=== PATIENT | male | born 1935 | race African-American/Black ===

== ENCOUNTER 2016-11-14 21:33 | Emergency (ER) | payer OTHER ==
[~2016-11-14] VITALS: Ht 182.9 cm; Wt 81.6 kg
[2016-11-14 22:29] VITALS: BP 132/82
[2016-11-14] MEDS ORDERED: KEFLEX500 MG ORAL (22:36)
[2016-11-14 23:25] LABS: APPEARANCE,URINE CLEAR; KETONES,URINE NEGATIVE (NEGATIVE); LEUKOCYTE ESTERASE ,URINE NEGATIVE (NEGATIVE); MEAN CORPUSCULAR HEMOGLOBIN 31.6 PG (27.0-31.0); MEAN CORPUSCULAR VOLUME 93 FL (80-99); MEAN PLATELET VOLUME 9.4 FL (6.5-10.1); NITRITE,URINE NEGATIVE (NEGATIVE); PH,URINE 5 (4.5-8.0); PLATELET COUNT 157 K/UL (150-450); PROTEIN,URINE NEGATIVE (NEGATIVE); RED BLOOD COUNT 4.81 M/UL (4.70-6.10); RED CELL DISTRIBUTION WIDTH 12.1 % (11.6-14.8); UROBILINOGEN,URINE NORMAL MG/DL (0.0-1.0); WHITE BLOOD COUNT 3.4 K/UL (4.8-10.8)
[2016-11-14 23:33] LABS: RBC,URINE 60-80 /HPF (0 - 0); SQUAMOUS EPITHELIAL CELL,UR FEW /LPF (NONE/OCC); WBC,URINE 0 /HPF (0 - 0)
[2016-11-14 23:43] LABS: ALANINE AMINOTRANSFERASE 22 U/L (3-41); ALBUMIN/GLOBULIN RATIO 1.1 (1.0-2.7); ALCOHOL < 10 mg/dL; ANION GAP 15 (5-15); ASPARTATE AMINO TRANSFERASE 25 U/L (5-40); CALCIUM 9.4 mg/dL (8.6-10.2); CARBON DIOXIDE 27 mEQ/L (20-30); CHLORIDE 99 mEQ/L (98-107); CREATININE 1.1 mg/dL (0.7-1.2); HEMOLYSIS 14; POTASSIUM 3.9 mEQ/L (3.4-4.9); SODIUM 141 mEQ/L (135-145)
[2016-11-15 00:29] VITALS: BP 136/85
[2016-11-15 02:29] VITALS: BP 163/85
--- NOTE | 2016-11-15 04:27 | Emergency Room Report ---
History of Present Illness General Chief Complaint: Behavioral Complaint Source: Patient, EMS Present Illness HPI Patient is an 81-year-old male presented after increased agitation. Patient had prior history dementia. Patient stays at a [facility]. Patient was noted to have previously been taking Namenda as well as Seroquel. Patient gradual onset of symptoms. Patient was sent for adjustment of medications. Allergies: Coded Allergies: No Known Allergies (Unverified , 11/14/16) Patient History Past Medical History: see triage record, dementia Reviewed Nursing Documentation: PMH: Agreed, PSxH: Agreed Nursing Documentation-PMH Past Medical History: No History, Except For Review of Systems All Other Systems: limited - by mental status Physical Exam Vital Signs Date Time Temp Pulse Resp B/P Pulse Ox O2 Delivery O2 Flow Rate FiO2 11/14/16 21:42 99.0 84 14 136/82 99 Room Air Sp02 EP Interpretation: reviewed, normal General Appearance: normal inspection, well appearing, no apparent distress, alert, GCS 15 Head: atraumatic ENT: normal ENT inspection, hearing grossly normal, normal voice Neck: normal inspection, full range of motion, supple, no bony tend Respiratory: normal inspection, lungs clear, normal breath sounds, no respiratory distress, no retraction, no wheezing Cardiovascular #1: regular rate, rhythm, no edema Gastrointestinal: normal inspection, normal bowel sounds, non tender, soft, no guarding, no hernia Genitourinary: no CVA tenderness Musculoskeletal: normal inspection, back normal, normal range of motion Neurologic: normal inspection, alert, responsive, speech normal Psychiatric: normal inspection, judgement/insight normal, mood/affect normal, other - calm cooperative Skin: normal inspection, normal color, no rash Medical Decision Making Diagnostic Impression: Primary Impression: Dementia ER Course Patient presented for agitation. Differential diagnoses include substance abuse , psychosis, bipolar disorder, depression, malingering, sundowning, dementia. Because of complexity of patient's case laboratory testing and imaging studies were ordered. Patient appeared to have a chronic dementia. Patient does not appear to be agitated at this time. Patient was given Seroquel by mouth. The patient was discussed with his [id number] and will be sent back. The patient shows no evidence of danger to others at this time. I attempted to contact the patient' s primary care physician was unavailable. Labs Test 11/14/16 23:00 White Blood Count 3.4 K/UL (4.8-10.8) Red Blood Count 4.81 M/UL (4.70-6.10) Hemoglobin 15.2 G/DL (14.2-18.0) Hematocrit 44.7 % (42.0-52.0) Mean Corpuscular Volume 93 FL (80-99) Mean Corpuscular Hemoglobin 31.6 PG (27.0-31.0) Mean Corpuscular Hemoglobin Concent 34.0 G/DL (32.0-36.0) Red Cell Distribution Width 12.1 % (11.6-14.8) Platelet Count 157 K/UL (150-450) Mean Platelet Volume 9.4 FL (6.5-10.1) Neutrophils (%) (Auto) % (45.0-75.0) Lymphocytes (%) (Auto) % (20.0-45.0) Monocytes (%) (Auto) % (1.0-10.0) Eosinophils (%) (Auto) % (0.0-3.0) Basophils (%) (Auto) % (0.0-2.0) Urine Color Pale yellow Urine Appearance Clear Urine pH 5 (4.5-8.0) Urine Specific [place] 1.025 (1.005-1.035) Urine Protein Negative (NEGATIVE) Urine Glucose (UA) Negative (NEGATIVE) Urine Ketones Negative (NEGATIVE) Urine Occult Blood 4+ (NEGATIVE) Urine Nitrite Negative (NEGATIVE) Urine Bilirubin Negative (NEGATIVE) Urine Urobilinogen Normal MG/DL (0.0-1.0) Urine Leukocyte Esterase Negative (NEGATIVE) Urine RBC 60-80 /HPF (0 - 0) Urine WBC 0 /HPF (0 - 0) Urine Squamous Epithelial Cells Few /LPF (NONE/OCC) Urine Bacteria None /HPF (NONE) Sodium Level 141 mEQ/L (135-145) Potassium Level 3.9 mEQ/L (3.4-4.9) Chloride Level 99 mEQ/L (98-107) Carbon Dioxide Level 27 mEQ/L (20-30) Anion Gap 15 (5-15) Blood Urea Nitrogen 14 mg/dL (7-23) Creatinine 1.1 mg/dL (0.7-1.2) Estimat Glomerular Filtration Rate mL/min (>60) Glucose Level 110 mg/dL (74-106) Calcium Level 9.4 mg/dL (8.6-10.2) Total Bilirubin 0.3 mg/dL (0.0-1.2) Aspartate Amino Transf (AST/SGOT) 25 U/L (5-40) Alanine Aminotransferase (ALT/SGPT) 22 U/L (3-41) Alkaline Phosphatase 66 U/L (40-129) Total Protein 7.0 g/dL (6.6-8.7) Albumin 3.7 g/dL (3.5-5.2) Globulin 3.3 g/dL Albumin/Globulin Ratio 1.1 (1.0-2.7) Thyroid Stimulating Hormone (TSH) 3.190 uIU/mL (0.300-4.500) Urine Opiates Screen Negative (NEGATIVE) Urine Barbiturates Screen Negative (NEGATIVE) Phencyclidine (PCP) Screen Negative (NEGATIVE) Urine Amphetamines Screen Negative (NEGATIVE) Urine Benzodiazepines Screen Negative (NEGATIVE) Urine Cocaine Screen Negative (NEGATIVE) Urine Marijuana (THC) Screen Negative (NEGATIVE) Serum Alcohol < 10 mg/dL Last Vital Signs Date Time Temp Pulse Resp B/P Pulse Ox O2 Delivery O2 Flow Rate FiO2 11/15/16 00:29 99.0 83 16 136/85 98 Room Air Status: improved Disposition: HOME, SELF-CARE Condition: Stable Scripts Cephalexin* (KEFLEX*) 500 Mg Capsule 500 MG ORAL Q6H, #28 CAP 0 Refills Prov: Dylan Alaniz 11/14/16 Referrals: [facility],REFERRING (PCP) Patient Instructions: Contusion Dylan Alaniz Nov 15, 2016 04:27
[2016-11-15 04:29] VITALS: BP 158/84
[2016-11-15 06:29] VITALS: BP 159/81
[2016-11-15 11:08] VITALS: BP 130/80
== END 2016-11-15 11:11 | disposition home or self-care (01) ==
LOC: EMR 22:10
DX: F03.90 Unspecified dementia, unspecified severity, without behavioral disturbance, psychotic disturbance, mood disturbance, and anxiety (principal); Z79.899 Other long term (current) drug therapy
CPT/HCPCS: 36415; 80053; 80300; 81001; 84443; 85025; 99283; G0480; 80329

== ENCOUNTER 2017-02-01 08:36 | Inpatient (IN) | payer OTHER ==
[~2017-02-01] VITALS: Ht 172.7 cm; Wt 63.5 kg
[2017-02-01] VITALS (15 sets, daily range): BP systolic 90–157; BP diastolic 45–82
[~2017-02-01 08:36] MED LIST: KEFLEX500 MG ORAL
[2017-02-01] MEDS ORDERED: cefTRIAXone 1 GM in NS 55 ML IVPB ONE (08:45)
--- NOTE | 2017-02-01 08:51 | Emergency Room Report ---
History of Present Illness General Chief Complaint: Altered Level of Consciousness Source: Medical Record, EMS Present Illness HPI This patient presents from an assisted living facility. He presents for altered mental status. He is brought in by EMS. He has a history of dementia, hypertension, prostate cancer, hyperthyroidism and P. diabetes. EMS report that they were called because of altered mental status. The last time the patient was seen in his normal state of health was yesterday evening. EMS report that fingerstick blood sugar was "high" on their blood sugar machine. The patient has not been previously diagnosed with diabetes. The patient is nonambulatory at baseline and has severe dementia and is unable to care for himself. Allergies: Coded Allergies: No Known Allergies (Unverified , 11/14/16) Patient History Past Medical History: see triage record, HTN, dementia, other - Prostate ca, Hyperthyroid Past Surgical History: unable to obtain Pertinent Family History: unable to obtain Social History: Denies: alcohol use, drug use, smoking Reviewed Nursing Documentation: PMH: Agreed, PSxH: Agreed Nursing Documentation-PMH Past Medical History: No History, Except For Hx Hypertension: Yes Hx Cancer: Yes - prostate Hx Neurological Problems: Yes - dementia Review of Systems All Other Systems: limited Physical Exam Vital Signs Date Time Temp Pulse Resp B/P Pulse Ox O2 Delivery O2 Flow Rate FiO2 02/01/17 08:29 115 37 111/75 94 Nasal Cannula 3.0 Sp02 EP Interpretation: reviewed, normal General Appearance: no apparent distress, Stupor Head: normocephalic, atraumatic Eyes: bilateral eye abnormal pupil - R. pupil 1mm, L. pupil 2mm ENT: normal ENT inspection, normal pharynx, no angioedema Neck: full range of motion, supple/symm/no masses Respiratory: chest non-tender, lungs clear, normal breath sounds, no respiratory distress, no retraction, no accessory muscle use, other - Tachypnea Cardiovascular #1: no edema, tachycardia Gastrointestinal: normal bowel sounds, soft, non-distended, no guarding, no rebound Rectal: deferred Musculoskeletal: normal inspection, normal range of motion Neurologic: sensory intact, other - Withdrawls from pain, unable to fully assess, non-focal Skin: normal color, warm/dry, well hydrated Medical Decision Making Diagnostic Impression: Primary Impression: Uncontrolled type 2 DM with hyperosmolar nonketotic hyperglycemia Additional Impressions: Renal failure Lactic acidosis UTI (urinary tract infection) High anion gap metabolic acidosis Hypernatremia Seizure Altered level of consciousness ER Course This patient presented with altered mental status and hyperglycemia. The patient did have a seizure here in the emergency department that was short and resolved spontaneously. The patient was maintaining stable vital signs. I did give the patient aggressive IV fluids to begin. Highest on my differential diagnosis was DKA and infection when I initially assessed this patient. Therefore, started aggressive IV fluids and broad-spectrum antibiotics. I did obtain a CT of the head given altered mental status and asymmetric pupils which showed no acute findings. Laboratory workup showed a blood sugar over 800. Patient is also in renal failure and lactic acidosis. He does have an anion gap but minimal ketones. Possibly this is from the lactic acidosis and dehydration. This appears to be more consistent with hyperosmolar hyperglycemia syndrome. The patient was also found to have urinary tract infection. This patient is admitted to the ICU. This patient is critically ill. This patient required complex medical decision- making, aggressive intervention, extensive laboratory workup and monitoring. Critical care time: 40 minutes. Labs Test 02/01/17 09:10 02/01/17 10:20 02/01/17 10:40 White Blood Count 10.1 K/UL (4.8-10.8) Red Blood Count 5.26 M/UL (4.70-6.10) Hemoglobin 15.2 G/DL (14.2-18.0) Hematocrit 51.2 % (42.0-52.0) Mean Corpuscular Volume 97 FL (80-99) Mean Corpuscular Hemoglobin 28.8 PG (27.0-31.0) Mean Corpuscular Hemoglobin Concent 29.7 G/DL (32.0-36.0) Red Cell Distribution Width 14.0 % (11.6-14.8) Platelet Count 331 K/UL (150-450) Mean Platelet Volume 7.9 FL (6.5-10.1) Neutrophils (%) (Auto) 84.1 % (45.0-75.0) Lymphocytes (%) (Auto) 11.2 % (20.0-45.0) Monocytes (%) (Auto) 4.5 % (1.0-10.0) Eosinophils (%) (Auto) 0.1 % (0.0-3.0) Basophils (%) (Auto) 0.2 % (0.0-2.0) Sodium Level 159 mEQ/L (135-145) Potassium Level 3.8 mEQ/L (3.4-4.9) Chloride Level 114 mEQ/L (98-107) Carbon Dioxide Level 24 mEQ/L (20-30) Anion Gap 21 (5-15) Blood Urea Nitrogen 47 mg/dL (7-23) Creatinine 2.8 mg/dL (0.7-1.2) Estimat Glomerular Filtration Rate mL/min (>60) Glucose Level 881 mg/dL (74-106) Lactic Acid Level 4.10 mmol/L (0.66-2.22) 1.70 mmol/L (0.66-2.22) Calcium Level 9.1 mg/dL (8.6-10.2) Magnesium Level 2.7 mg/dL (1.7-2.5) Total Bilirubin 0.3 mg/dL (0.0-1.2) Aspartate Amino Transf (AST/SGOT) 41 U/L (5-40) Alanine Aminotransferase (ALT/SGPT) 33 U/L (3-41) Alkaline Phosphatase 101 U/L (40-129) Total Creatine Kinase 869 U/L (38-174) Troponin I < 0.30 ng/mL (<=0.30) Total Protein 6.7 g/dL (6.6-8.7) Albumin 2.7 g/dL (3.5-5.2) Globulin 4.0 g/dL Albumin/Globulin Ratio 0.6 (1.0-2.7) Thyroid Stimulating Hormone (TSH) 1.060 uIU/mL (0.300-4.500) Free Thyroxine 0.90 ng/dL (0.86-1.85) Serum Alcohol < 10 mg/dL Acetone Level Positive-small (NEGATIVE) Arterial Blood pH 7.360 (7.350-7.450) Arterial Blood Partial Pressure CO2 35.0 mmHg (35.0-45.0) Arterial Blood Partial Pressure O2 82.1 mmHg (75.0-100.0) Arterial Blood HCO3 19.4 mmol/L (22.0-26.0) Arterial Blood Oxygen Saturation 94.5 % (92.0-98.0) Arterial Blood Base Excess -5.2 Adam Test Positive EKG Diagnostic Results Rate: tachycardiac Rhythm: other ST Segments: other Other Impression Sinus tachycardia with first degree AV block. Nonspecific ST segment findings. Rhythm Strip Diag. Results EP Interpretation: yes Rate: 100's Rhythm: no PVC's, no ectopy Other Impression S.tachycardia Chest X-Ray Diagnostic Results EP Interpretation: Yes Findings: no consolidation, no effusion, no pneumothorax, no acute cardiopulmonary disease Number of Views: 1 CT/MRI/US Diagnostic Results CT/MRI/US Diagnostic Results : Imaging Test Ordered: CT head Impression No intracranial bleed. No acute intracranial process. Impression: No acute findings. Last Vital Signs Date Time Temp Pulse Resp B/P Pulse Ox O2 Delivery O2 Flow Rate FiO2 02/01/17 08:29 115 37 111/75 94 Nasal Cannula 3.0 Disposition: ADMITTED INPATIENT Condition: Critical HOSSEIN BLACK D.O. Feb 01, 2017 08:51
[2017-02-01] MEDS ORDERED: LORazepam Inj 2mg/ml 1ml ONE (09:24)
[2017-02-01] MEDS ORDERED: LORazepam Inj 2mg/ml 1ml IV ONE (09:30)
[2017-02-01] MEDS ORDERED: levETIRAcetam 500 MG in D5W 110 ML IVPB ONE (09:30)
[2017-02-01 09:57] LABS: BASOPHILS % (AUTO) 0.2 % (0.0-2.0); EOSINOPHILS % (AUTO) 0.1 % (0.0-3.0); LYMPHOCYTES % (AUTO) 11.2 % (20.0-45.0); MEAN CORPUSCULAR HEMOGLOBIN 28.8 PG (27.0-31.0); MEAN CORPUSCULAR HGB CONC 29.7 G/DL (32.0-36.0); MEAN CORPUSCULAR VOLUME 97 FL (80-99); MEAN PLATELET VOLUME 7.9 FL (6.5-10.1); MONOCYTES % (AUTO) 4.5 % (1.0-10.0); NEUTROPHILS % (AUTO) 84.1 % (45.0-75.0); PLATELET COUNT 331 K/UL (150-450); RED BLOOD COUNT 5.26 M/UL (4.70-6.10); WHITE BLOOD COUNT 10.1 K/UL (4.8-10.8)
[2017-02-01 10:05] LABS: TROPONIN I < 0.30 ng/mL (<=0.30)
[2017-02-01 10:08] LABS: ALANINE AMINOTRANSFERASE 33 U/L (3-41); ALBUMIN/GLOBULIN RATIO 0.6 (1.0-2.7); ALCOHOL < 10 mg/dL; ANION GAP 21 (5-15); ASPARTATE AMINO TRANSFERASE 41 U/L (5-40); CALCIUM 9.1 mg/dL (8.6-10.2); CARBON DIOXIDE 24 mEQ/L (20-30); CHLORIDE 114 mEQ/L (98-107); CREATININE 2.8 mg/dL (0.7-1.2); HEMOLYSIS 32; MAGNESIUM 2.7 mg/dL (1.7-2.5); POTASSIUM 3.8 mEQ/L (3.4-4.9); SODIUM 159 mEQ/L (135-145); TOTAL PROTEIN 6.7 g/dL (6.6-8.7)
--- NOTE | 2017-02-01 10:11 | Diagnostic Imaging Report ---
Indication: Shortness of breath Technique: One view of the chest Comparison: none Findings: Lungs and pleural spaces are clear. Aorta is elongated tortuous and calcified. Impression: No acute process
[2017-02-01 10:13] LABS: REFLEX LACTIC ACID YES OR NO YES
[2017-02-01] MEDS ORDERED: Nitroglycerin Subl 0.4mg tab (Bottle Of 25) SL PRN (10:45)
[2017-02-01] MEDS ORDERED: Miralax 17gm pkt ORAL PRN (10:45)
[2017-02-01] MEDS ORDERED: DuoNeb 0.5-3(2.5)mg/3ml neb HHN PRN (10:45)
[2017-02-01] MEDS ORDERED: LORazepam Inj 2mg/ml 1ml IV PRN (10:45)
[2017-02-01 10:51] LABS: ABG BASE EXCESS -5.2
[2017-02-01 10:52] LABS: ABG ALLEN TEST POSITIVE
[2017-02-01] MEDS ORDERED: levETIRAcetam 500mg vial IV ONE (10:58)
--- NOTE | 2017-02-01 11:02 | Diagnostic Imaging Report ---
Indication: Altered mental status Technique: spiral acquisitions obtained through the brain. Angled axial and coronal 5 x 5 mm slices were reconstructed. No IV contrast utilized. Radiation dose was minimized using automated exposure control Total dose length product 1414 mGycm. CTDIvol(s) 70 mGy Comparison: none FINDINGS: No acute hemorrhage or edema. No mass effect or midline shift. There is age-related enlargement of the ventricles and extra axial CSF spaces. There is periventricular deep white matter ischemic change. Normal king-white differentiation. Visualized orbits are unremarkable. Visualized sinuses are unremarkable. Intact calvarium. IMPRESSION: Chronic and age-related changes. Negative for acute intracranial bleed or mass effect The CT scanner at [facility] is accredited by the [employer] and the scans are performed using protocols designed to limit radiation exposure to as low as reasonably achievable to attain images of sufficient resolution adequate for diagnostic evaluation
[2017-02-01] MEDS ORDERED: PRADAXA150 MG ORAL (11:09)
[2017-02-01] MEDS ORDERED: COENZYME Q-10200 MG PO (11:09)
[2017-02-01] MEDS ORDERED: KLONOPIN1 MG ORAL (11:09)
[2017-02-01] MEDS ORDERED: MULTIVITAMINS1 EAC2 ORAL (11:09)
[2017-02-01] MEDS ORDERED: LOVAZA1 GM ORAL (11:09)
[2017-02-01] MEDS ORDERED: ACETAMINOPHEN325 M1 ORAL (11:09)
[2017-02-01] MEDS ORDERED: ASCORBIC ACID500 MG ORAL (11:09)
[2017-02-01] MEDS ORDERED: HALOPERIDOL1 MG ORAL (11:09)
[2017-02-01] MEDS ORDERED: DOCUSATE SODIU100 MG ORAL (11:09)
[2017-02-01] MEDS ORDERED: SERTRALINE HCL25 MG ORAL (11:09)
[2017-02-01] MEDS ORDERED: MELATONIN 3 MG1 EACH ORAL (11:09)
[2017-02-01] MEDS ORDERED: BISACODYL5 MG ORAL (11:09)
[2017-02-01] MEDS ORDERED: VITAMIN D1000 UNI1 ORAL (11:09)
[2017-02-01] MEDS ORDERED: TRAZODONE HCL150 MG ORAL (11:09)
[2017-02-01 12:21] LABS: APPEARANCE,URINE SLIGHTLY CLOUDY; KETONES,URINE 2+ (NEGATIVE); LEUKOCYTE ESTERASE ,URINE NEGATIVE (NEGATIVE); NITRITE,URINE NEGATIVE (NEGATIVE); PH,URINE 5 (4.5-8.0); PROTEIN,URINE 3+ (NEGATIVE); UROBILINOGEN,URINE NORMAL MG/DL (0.0-1.0)
[2017-02-01 12:32] LABS: BACTERIA,URINE FEW /HPF; RBC,URINE TNTC /HPF (0 - 0); SQUAMOUS EPITHELIAL CELL,UR OCCASIONAL /LPF (NONE/OCC)
[2017-02-01] MEDS: Morphine Sulfate 4mg/ml Inj IVP PRN (15:10)
[2017-02-01 16:22] LABS: ANION GAP 21 (5-15); CARBON DIOXIDE 19 mEQ/L (20-30); CHLORIDE 118 mEQ/L (98-107); CREATININE 2.4 mg/dL (0.7-1.2); HEMOLYSIS 10; POTASSIUM 3.5 mEQ/L (3.4-4.9); SODIUM 158 mEQ/L (135-145)
[2017-02-01] MEDS ORDERED: Tubing IV Secondary IV ONE (16:45)
[2017-02-01] MEDS ORDERED: Insulin Rate Change 1 Each MISC PRN (17:00)
--- NOTE | 2017-02-01 18:02 | History and Physical ---
History of Present Illness General Reason for Hospitalization: Altered Level of Consciousness Present Illness Allergies: Coded Allergies: No Known Allergies (Unverified , 11/14/16) Medication History Scheduled Ascorbic Acid* (Ascorbic Acid*), 500 MG ORAL DAILY, (Reported) Bisacodyl* (Dulcolax*), 5 MG ORAL DAILY, (Reported) Cephalexin* (Keflex*), 500 MG ORAL Q6H Cholecalciferol (Vitamin D3)* (Vitamin D*), 1,000 UNIT ORAL DAILY, (Reported) Clonazepam* (Klonopin*), 1 MG ORAL QHS, (Reported) Dabigatran Etexilate Mesylate* (Pradaxa*), 150 MG ORAL EVERY 12 HOURS, (Reported ) Docusate Sodium* (Docusate Sodium*), 100 MG ORAL TWICE A DAY, (Reported) Haloperidol* (Haldol*), 3 MG ORAL BID, (Reported) Multivitamins* (Multivitamins*), 1 TAB ORAL DAILY, (Reported) [place]-3 Acid Ethyl Esters (Lovaza), 1 GM ORAL DAILY, (Reported) Sertraline Hcl* (Sertraline Hcl*), 50 MG ORAL DAILY, (Reported) Trazodone* (Trazodone*), 50 MG ORAL BEDTIME, (Reported) Ubidecarenone (Coenzyme Q-10), 100 MG PO DAILY, (Reported) Scheduled PRN Acetaminophen* (Acetaminophen 325MG Tablet*), 650 MG ORAL Q6H PRN for Pain Scale (6-10), (Reported) Melatonin (Melatonin 3 Mg Tablet), 1 TAB ORAL BEDTIME PRN for Insomnia, ( Reported) Patient History Healthcare decision maker Resuscitation status Full Code Advanced Directive on File Physical Exam Last 24 Hour Vital Signs Date Time Temp Pulse Resp B/P Pulse Ox O2 Delivery O2 Flow Rate FiO2 02/01/17 16:00 117 02/01/17 16:00 98.2 113 33 150/82 98 Nasal Cannula 3.0 02/01/17 15:00 107 34 157/63 99 Nasal Cannula 3.0 02/01/17 15:00 106 32 157/63 100 Nasal Cannula 3.0 02/01/17 14:00 86 30 139/63 100 Nasal Cannula 3.0 02/01/17 13:00 88 02/01/17 13:00 88 31 128/70 100 Nasal Cannula 3.0 02/01/17 12:30 3.0 02/01/17 12:29 98.1 91 28 116/45 98 Nasal Cannula 3.0 02/01/17 11:42 91 27 137/66 100 Nasal Cannula 3.0 02/01/17 11:41 91 27 137/66 100 Nasal Cannula 3.0 02/01/17 10:30 90 31 113/62 99 Nasal Cannula 3.0 02/01/17 08:59 101.8 101 37 115/75 100 Nasal Cannula 3.0 02/01/17 08:29 115 37 111/75 94 Nasal Cannula 3.0 Laboratory Tests Test 02/01/17 09:10 02/01/17 10:20 02/01/17 10:40 02/01/17 12:00 White Blood Count 10.1 K/UL (4.8-10.8) Red Blood Count 5.26 M/UL (4.70-6.10) Hemoglobin 15.2 G/DL (14.2-18.0) Hematocrit 51.2 % (42.0-52.0) Mean Corpuscular Volume 97 FL (80-99) Mean Corpuscular Hemoglobin 28.8 PG (27.0-31.0) Mean Corpuscular Hemoglobin Concent 29.7 G/DL (32.0-36.0) L Red Cell Distribution Width 14.0 % (11.6-14.8) Platelet Count 331 K/UL (150-450) Mean Platelet Volume 7.9 FL (6.5-10.1) Neutrophils (%) (Auto) 84.1 % (45.0-75.0) H Lymphocytes (%) (Auto) 11.2 % (20.0-45.0) L Monocytes (%) (Auto) 4.5 % (1.0-10.0) Eosinophils (%) (Auto) 0.1 % (0.0-3.0) Basophils (%) (Auto) 0.2 % (0.0-2.0) Sodium Level 159 mEQ/L (135-145) H Potassium Level 3.8 mEQ/L (3.4-4.9) Chloride Level 114 mEQ/L (98-107) H Carbon Dioxide Level 24 mEQ/L (20-30) Anion Gap 21 (5-15) H Blood Urea Nitrogen 47 mg/dL (7-23) H Creatinine 2.8 mg/dL (0.7-1.2) H Estimat Glomerular Filtration Rate mL/min (>60) Glucose Level 881 mg/dL (74-106) *H Lactic Acid Level 4.10 mmol/L (0.66-2.22) H 1.70 mmol/L (0.66-2.22) Calcium Level 9.1 mg/dL (8.6-10.2) Magnesium Level 2.7 mg/dL (1.7-2.5) H Total Bilirubin 0.3 mg/dL (0.0-1.2) Aspartate Amino Transf (AST/SGOT) 41 U/L (5-40) H Alanine Aminotransferase (ALT/SGPT) 33 U/L (3-41) Alkaline Phosphatase 101 U/L (40-129) Total Creatine Kinase 869 U/L (38-174) H Troponin I < 0.30 ng/mL (<=0.30) Total Protein 6.7 g/dL (6.6-8.7) Albumin 2.7 g/dL (3.5-5.2) L Globulin 4.0 g/dL Albumin/Globulin Ratio 0.6 (1.0-2.7) L Thyroid Stimulating Hormone (TSH) 1.060 uIU/mL (0.300-4.500) Free Thyroxine 0.90 ng/dL (0.86-1.85) Serum Alcohol < 10 mg/dL Acetone Level Positive-small (NEGATIVE) Arterial Blood pH 7.360 (7.350-7.450) Arterial Blood Partial Pressure CO2 35.0 mmHg (35.0-45.0) Arterial Blood Partial Pressure O2 82.1 mmHg (75.0-100.0) Arterial Blood HCO3 19.4 mmol/L (22.0-26.0) L Arterial Blood Oxygen Saturation 94.5 % (92.0-98.0) Arterial Blood Base Excess -5.2 Adam Test Positive Urine Color Brown Urine Appearance Slightly cloudy Urine pH 5 (4.5-8.0) Urine Specific [place] 1.015 (1.005-1.035) Urine Protein 3+ (NEGATIVE) H Urine Glucose (UA) 4+ (NEGATIVE) H Urine Ketones 2+ (NEGATIVE) H Urine Occult Blood 5+ (NEGATIVE) H Urine Nitrite Negative (NEGATIVE) Urine Bilirubin Negative (NEGATIVE) Urine Urobilinogen Normal MG/DL (0.0-1.0) Urine Leukocyte Esterase Negative (NEGATIVE) Urine RBC Tntc /HPF (0 - 0) H Urine WBC 2-4 /HPF (0 - 0) Urine Squamous Epithelial Cells Occasional /LPF Urine Bacteria Few /HPF (NONE) Test 02/01/17 13:45 02/01/17 15:20 Glucose Level 823 mg/dL (74-106) *H > 745 mg/dL (74-106) *H Sodium Level 158 mEQ/L (135-145) H Potassium Level 3.5 mEQ/L (3.4-4.9) Chloride Level 118 mEQ/L (98-107) H Carbon Dioxide Level 19 mEQ/L (20-30) L Anion Gap 21 (5-15) H Blood Urea Nitrogen 50 mg/dL (7-23) H Creatinine 2.4 mg/dL (0.7-1.2) H Estimat Glomerular Filtration Rate mL/min (>60) Calcium Level 8.0 mg/dL (8.6-10.2) L Height (Feet): 5 Height (Inches): 8.00 Weight (Pounds): 125 Medications Current Medications Medications (Trade) Dose Ordered Sig/Feliz Route PRN Reason Start Time Stop Time Status Last Admin Dose Admin Acetaminophen (Tylenol) 650 mg Q4H PRN ORAL T>100.5 02/01/17 10:45 03/03/17 10:44 Albuterol/ Ipratropium (DuoNeb 0.5-3(2.5)mg/3ml) 3 ml Q4H PRN HHN Shortness of Breath 02/01/17 10:45 02/06/17 10:44 Dextrose (Dextrose 50%) STAT PRN IV Hypoglycemia 02/01/17 10:45 03/03/17 10:44 Heparin Sodium (Porcine) (Heparin 5000 units/ml) 5,000 units EVERY 12 HOURS SUBQ 02/01/17 21:00 03/03/17 20:59 Insulin Human Regular (NovoLIN R) 5 units PRN PRN IV BS 200-299 02/01/17 13:31 03/03/17 13:30 Insulin Human Regular (NovoLIN R) 10 units PRN PRN IV BS=>300 02/01/17 13:31 03/03/17 13:30 02/01/17 17:33 Insulin Human Regular/Sodium Chloride (NovoLIN R/ Sodium Chloride) 101 ml @ 0 mls/hr Q24H IV 02/01/17 17:00 03/03/17 16:59 02/01/17 17:34 Lorazepam (Ativan 2mg/ml 1ml) 2 mg Q2H PRN IV agitation 02/01/17 10:45 02/08/17 10:44 Miscellaneous Medication (Insulin Rate Change) 1 ea PRN PRN MISC ALL IVs IN NS 02/01/17 10:45 03/03/17 10:44 Morphine Sulfate (Morphine Sulfate) 4 mg Q4H PRN IVP Severe Pain (Pain Scale 7-10) 02/01/17 10:45 02/08/17 10:44 02/01/17 15:10 Nitroglycerin (Ntg) 0.4 mg Q5M PRN SL Prn Chest Pain 02/01/17 10:45 03/03/17 10:44 Ondansetron HCl (Zofran) 4 mg Q6H PRN IVP Nausea & Vomiting 02/01/17 10:45 03/03/17 10:44 Pantoprazole 40 mg 40 mg DAILY IVP 02/02/17 09:00 03/04/17 08:59 Polyethylene Glycol (Miralax) 17 gm DAILYPRN PRN ORAL Constipation 02/01/17 10:45 03/03/17 10:44 Sodium Chloride (Sodium Chloride 1000ml bag) 1,000 ml @ 150 mls/hr Q6H40M IV 02/01/17 13:30 03/03/17 13:29 02/01/17 14:44 FEDE ANSARI Feb 01, 2017 18:02
[2017-02-01] MEDS: Insulin Rate Change 1 Each MISC PRN ×5 (18:08→22:22)
[2017-02-01] MEDS ORDERED: Cefepime HCl 1 GM in NS 55 ML IVPB ONE (19:00)
[2017-02-01] MEDS: Heparin 5000 units/ml inj SUBQ SCH (21:00)
[2017-02-02] VITALS (24 sets, daily range): BP systolic 99–154; BP diastolic 41–69
[2017-02-02] MEDS: Insulin Rate Change 1 Each MISC PRN ×7 (00:08→23:42)
[2017-02-02] MEDS ORDERED: Insulin Rate Change 1 Each MISC PRN (02:30)
[2017-02-02 06:06] LABS: ANION GAP 16 (5-15); CALCIUM 8.7 mg/dL (8.6-10.2); CARBON DIOXIDE 23 mEQ/L (20-30); CHLORIDE 131 mEQ/L (98-107); CREATININE 2.8 mg/dL (0.7-1.2); HEMOLYSIS 3; POTASSIUM 2.9 mEQ/L (3.4-4.9)
[2017-02-02 06:07] LABS: BILIRUBIN,DIRECT 0.1 mg/dL (0.1-0.3); PHOSPHORUS 2.4 mg/dL (2.5-4.8); TOTAL PROTEIN 6.5 g/dL (6.6-8.7)
[2017-02-02 06:22] LABS: INR 1.3 (0.9-1.1); PROTHROMBIN TIME 13.8 SEC (9.30-11.50)
[2017-02-02 06:30] LABS: SODIUM 170 mEQ/L (135-145)
[2017-02-02] MEDS: Heparin 5000 units/ml inj SUBQ SCH (07:40)
[2017-02-02] MEDS ORDERED: Vancomycin 1.25 GM in NS 275 ML IVPB ONE (09:00)
[2017-02-02] MEDS ORDERED: Pantoprazole Inj IVP SCH (09:00)
[2017-02-02] MEDS ORDERED: D5NS 1000ml IV ONE (09:10)
[2017-02-02] MEDS ORDERED: Tubing IV Secondary IV ONE (09:10)
--- NOTE | 2017-02-02 11:14 | Pulmonolgy Critical Care Note ---
Critical Care - Asmt/Plan Problems: (1) DKA, type 1 (2) Sepsis (3) Acute encephalopathy (4) ATN (acute tubular necrosis) (5) Alzheimer's dementia Respiratory: monitor respiratory rate, adjust FIO2 Cardiac: continue to monitor HR/BP Renal: F/U I&O, keep IV fluid Infectious Disease: check cultures, continue antibiotics Gastrointestinal: continue feedings/current rate Endocrine: check TSH, check HgA1C Hematologic: monitor H/H Neurologic: PRN Morphine Affect: PRN ativan Prophylaxis: Protonix Notes Reviewed: ID, GI Discussed with: nurses, consultants, patient case coordinatorindustrial engineering manager - Objective Last 24 Hour Vital Signs Date Time Temp Pulse Resp B/P Pulse Ox O2 Delivery O2 Flow Rate FiO2 02/02/17 10:00 108 34 115/58 94 Venturi Mask 15.0 50 02/02/17 09:00 90 30 154/53 94 Venturi Mask 15.0 50 02/02/17 08:00 97.9 89 34 128/56 95 Venturi Mask 15.0 50 02/02/17 08:00 76 02/02/17 07:00 76 40 126/57 99 Venturi Mask 50 02/02/17 07:00 100 Venturi Mask 14.0 55 02/02/17 07:00 Venturi Mask 14.0 55 02/02/17 07:00 104 24 Venturi Mask 14.0 55 02/02/17 06:00 96 33 128/52 99 Venturi Mask 50.0 02/02/17 05:00 85 33 112/67 97 Venturi Mask 50.0 02/02/17 04:00 81 02/02/17 04:00 98.3 91 33 109/52 99 Venturi Mask 50.0 02/02/17 03:00 86 33 107/41 99 Venturi Mask 50.0 02/02/17 02:00 93 33 108/46 97 Venturi Mask 50.0 02/02/17 01:00 88 33 99/51 80 Venturi Mask 3.0 02/02/17 00:00 97.6 84 32 101/66 86 Nasal Cannula 3.0 02/02/17 00:00 89 02/01/17 23:00 82 36 101/45 98 Nasal Cannula 3.0 02/01/17 22:00 85 33 99/55 96 Nasal Cannula 3.0 02/01/17 21:00 87 33 100/55 96 Nasal Cannula 3.0 02/01/17 20:00 90 02/01/17 20:00 98.6 89 35 119/55 95 Nasal Cannula 3.0 02/01/17 19:19 Nasal Cannula 3.0 32 02/01/17 19:18 96 33 Nasal Cannula 3.0 32 02/01/17 19:18 96 Nasal Cannula 3.0 32 02/01/17 19:00 91 35 118/52 95 Nasal Cannula 3.0 02/01/17 18:00 92 33 100/45 95 Nasal Cannula 3.0 02/01/17 17:00 94 34 90/46 98 Nasal Cannula 3.0 02/01/17 16:00 117 02/01/17 16:00 98.2 113 33 150/82 98 Nasal Cannula 3.0 02/01/17 15:00 107 34 157/63 99 Nasal Cannula 3.0 02/01/17 15:00 106 32 157/63 100 Nasal Cannula 3.0 02/01/17 14:00 86 30 139/63 100 Nasal Cannula 3.0 02/01/17 13:00 88 02/01/17 13:00 88 31 128/70 100 Nasal Cannula 3.0 02/01/17 12:30 3.0 02/01/17 12:29 98.1 91 28 116/45 98 Nasal Cannula 3.0 02/01/17 11:42 91 27 137/66 100 Nasal Cannula 3.0 02/01/17 11:41 91 27 137/66 100 Nasal Cannula 3.0 Status: somnolent Condition: critical HEENT: atraumatic Neck: full ROM Lungs: clear Heart: HR/BP stable, HR/BP unstable Abdomen: soft, active bowel sounds Extremities: no C/C/E Decubiti: location, stage Micro: Microbiology Date/Time Source Procedure Growth Status 02/01/17 09:10 Blood Blood Culture - Preliminary Gram Positive Cocci Resulted 02/01/17 08:55 Blood Blood Culture - Preliminary Gram Positive Cocci Resulted Accucheck: 74 Critical Care - Subjective ROS Limited/Unobtainable: No ICU Day: opens eyes Condition: improving EKG Rhythm: Sinus Rhythm FI02: 50 Fluids: d5 w 75 cc/hour I&O: Intake and Output 02/01/17 02/02/17 19:00 07:00 Intake Total 4871.35 ml 1688.0 ml Output Total 60 ml 510 ml Balance 4811.35 ml 1178.0 ml Intake IV Total 1716.35 ml 1688.0 ml Other 3155 ml Output Urine Total 60 ml 510 ml # Voids 120 CXR: no change Labs: Laboratory Tests Test 02/01/17 12:00 02/01/17 13:45 02/01/17 15:20 02/02/17 04:10 Urine Color Brown Urine Appearance Slightly cloudy Urine pH 5 (4.5-8.0) Urine Specific [place] 1.015 (1.005-1.035) Urine Protein 3+ (NEGATIVE) H Urine Glucose (UA) 4+ (NEGATIVE) H Urine Ketones 2+ (NEGATIVE) H Urine Occult Blood 5+ (NEGATIVE) H Urine Nitrite Negative (NEGATIVE) Urine Bilirubin Negative (NEGATIVE) Urine Urobilinogen Normal MG/DL (0.0-1.0) Urine Leukocyte Esterase Negative (NEGATIVE) Urine RBC Tntc /HPF (0 - 0) H Urine WBC 2-4 /HPF (0 - 0) Urine Squamous Epithelial Cells Occasional /LPF Urine Bacteria Few /HPF (NONE) Glucose Level 823 mg/dL (74-106) *H > 745 mg/dL (74-106) *H 73 mg/dL (74-106) #L Sodium Level 158 mEQ/L (135-145) H 170 mEQ/L (135-145) #*H Potassium Level 3.5 mEQ/L (3.4-4.9) 2.9 mEQ/L (3.4-4.9) L Chloride Level 118 mEQ/L (98-107) H 131 mEQ/L (98-107) H Carbon Dioxide Level 19 mEQ/L (20-30) L 23 mEQ/L (20-30) Anion Gap 21 (5-15) H 16 (5-15) H Blood Urea Nitrogen 50 mg/dL (7-23) H 51 mg/dL (7-23) H Creatinine 2.4 mg/dL (0.7-1.2) H 2.8 mg/dL (0.7-1.2) H Estimat Glomerular Filtration Rate mL/min (>60) mL/min (>60) Calcium Level 8.0 mg/dL (8.6-10.2) L 8.7 mg/dL (8.6-10.2) Prothrombin Time 13.8 SEC (9.30-11.50) H Prothromb Time International Ratio 1.3 (0.9-1.1) H Activated Partial Thromboplast Time 34 SEC (23-33) H Phosphorus Level 2.4 mg/dL (2.5-4.8) L Total Bilirubin 0.2 mg/dL (0.0-1.2) Direct Bilirubin 0.1 mg/dL (0.1-0.3) Aspartate Amino Transf (AST/SGOT) 126 U/L (5-40) H Alanine Aminotransferase (ALT/SGPT) 51 U/L (3-41) H Alkaline Phosphatase 100 U/L (40-129) Total Protein 6.5 g/dL (6.6-8.7) L Albumin 2.4 g/dL (3.5-5.2) L FEDE ANSARI Feb 02, 2017 11:14
[2017-02-02] MEDS: Morphine Sulfate 4mg/ml Inj IVP PRN (11:25)
[2017-02-02] MEDS ORDERED: D5W w/KCl 20mEq 1,000 ML IV SCH (12:00)
[2017-02-02] MEDS: D5W w/KCl 20mEq 1,000 ML IV SCH (12:00)
--- NOTE | 2017-02-02 12:17 | Consultation ---
Consult Note Consult Note asked to evaluate for renal failure and electrolyte imbalances Chief Complaint: Altered Level of Consciousness This patient presents from an assisted living facility. He presents for altered mental status. He is brought in by EMS. He has a history of dementia, hypertension, prostate cancer, hyperthyroidism and P. diabetes. EMS report that they were called because of altered mental status. The last time the patient was seen in his normal state of health was yesterday evening. EMS report that fingerstick blood sugar was "high" on their blood sugar machine. The patient has not been previously diagnosed with diabetes. The patient is nonambulatory at baseline and has severe dementia and is unable to care for himself. Past Medical History: see triage record, HTN, dementia, other - Prostate ca, Hyperthyroid Past Medical History: No History, Except For Hx Hypertension: Yes Hx Cancer: Yes - prostate Hx Neurological Problems: Yes - dementia Patient examined in ICU Data reviewed - Has rukhsana Henmaturia Assessment/Plan status: - Acute renal failure- - Mainly pre renal due to free water deficit, leading to hyperNatremia (1) DKA, type 1 (2) Sepsis (3) Acute encephalopathy (4) prostate Cancer (5) Alzheimer's dementia (6) HypoAlbuminemia Plan: free Water IV and PO Monitor Na and K ... Monitor BS and BP Avoid Nephrotoxics Per orders EDIS CASEY Feb 02, 2017 12:17
[2017-02-02] MEDS ORDERED: Aminocaproic Acid Inj 5,000 MG in NS 110 ML IV ONE (12:30)
[2017-02-02] MEDS ORDERED: Potassium Phosphate 30 MM in Sodium Chloride 550 ML IV ONE (13:00)
--- NOTE | 2017-02-02 13:58 | Consultation ---
History of Present Illness General Date patient seen: Feb 02, 2017 Time patient seen: 13:53 Chief Complaint: Altered Level of Consciousness Referring physician: Kari Reason for Consultation: hematuria Present Illness HPI 81 yo male with DKA in ICU. Hematuria noted on admission after catheter placement. Family states patient has hx of prostate cancer s/p prostatectomy and adjuvant radiation in 2001. On Pradaxa for a. fib. Patient is in assisted living facility, not communicative. Patient is DNR/DNI Allergies: Coded Allergies: No Known Allergies (Unverified , 11/14/16) Medication History Scheduled Ascorbic Acid* (Ascorbic Acid*), 500 MG ORAL DAILY, (Reported) Bisacodyl* (Dulcolax*), 5 MG ORAL DAILY, (Reported) Cephalexin* (Keflex*), 500 MG ORAL Q6H Cholecalciferol (Vitamin D3)* (Vitamin D*), 1,000 UNIT ORAL DAILY, (Reported) Clonazepam* (Klonopin*), 1 MG ORAL QHS, (Reported) Dabigatran Etexilate Mesylate* (Pradaxa*), 150 MG ORAL EVERY 12 HOURS, (Reported ) Docusate Sodium* (Docusate Sodium*), 100 MG ORAL TWICE A DAY, (Reported) Haloperidol* (Haldol*), 3 MG ORAL BID, (Reported) Multivitamins* (Multivitamins*), 1 TAB ORAL DAILY, (Reported) [place]-3 Acid Ethyl Esters (Lovaza), 1 GM ORAL DAILY, (Reported) Sertraline Hcl* (Sertraline Hcl*), 50 MG ORAL DAILY, (Reported) Trazodone* (Trazodone*), 50 MG ORAL BEDTIME, (Reported) Ubidecarenone (Coenzyme Q-10), 100 MG PO DAILY, (Reported) Scheduled PRN Acetaminophen* (Acetaminophen 325MG Tablet*), 650 MG ORAL Q6H PRN for Pain Scale (6-10), (Reported) Melatonin (Melatonin 3 Mg Tablet), 1 TAB ORAL BEDTIME PRN for Insomnia, ( Reported) Patient History Limited by: language barrier History Provided By: Family Member, Medical Record Healthcare decision maker Resuscitation status Full Code Advanced Directive on File Past Medical/Surgical History Past Medical/Surgical History: (1) Lactic acidosis (2) Renal failure (3) UTI (urinary tract infection) (4) Uncontrolled type 2 DM with hyperosmolar nonketotic hyperglycemia (5) Sepsis (6) ATN (acute tubular necrosis) (7) DKA, type 1 Review of Systems Constitutional: Denies: chills, fever, malaise, no symptoms, other, see HPI, sweats, weakness All Other Systems: negative except mentioned in HPI Physical Exam General Appearance: WD/WN Cardiovascular/Chest: irregularly irregular Abdomen: non tender, soft Genitourinary/Rectal: monae Last 24 Hour Vital Signs Date Time Temp Pulse Resp B/P Pulse Ox O2 Delivery O2 Flow Rate FiO2 02/02/17 13:00 109 29 131/65 100 Venturi Mask 15.0 50 02/02/17 12:00 98.1 108 22 130/56 94 Venturi Mask 15.0 50 02/02/17 12:00 105 02/02/17 11:55 97.9 02/02/17 11:00 96 34 116/65 100 Venturi Mask 15.0 50 02/02/17 10:00 108 34 115/58 94 Venturi Mask 15.0 50 02/02/17 09:00 90 30 154/53 94 Venturi Mask 15.0 50 02/02/17 08:00 97.9 89 34 128/56 95 Venturi Mask 15.0 50 02/02/17 08:00 76 02/02/17 07:00 76 40 126/57 99 Venturi Mask 50 02/02/17 07:00 100 Venturi Mask 14.0 55 02/02/17 07:00 Venturi Mask 14.0 55 02/02/17 07:00 104 24 Venturi Mask 14.0 55 02/02/17 06:00 96 33 128/52 99 Venturi Mask 50.0 02/02/17 05:00 85 33 112/67 97 Venturi Mask 50.0 02/02/17 04:00 81 02/02/17 04:00 98.3 91 33 109/52 99 Venturi Mask 50.0 02/02/17 03:00 86 33 107/41 99 Venturi Mask 50.0 02/02/17 02:00 93 33 108/46 97 Venturi Mask 50.0 02/02/17 01:00 88 33 99/51 80 Venturi Mask 3.0 02/02/17 00:00 97.6 84 32 101/66 86 Nasal Cannula 3.0 02/02/17 00:00 89 02/01/17 23:00 82 36 101/45 98 Nasal Cannula 3.0 02/01/17 22:00 85 33 99/55 96 Nasal Cannula 3.0 02/01/17 21:00 87 33 100/55 96 Nasal Cannula 3.0 02/01/17 20:00 90 02/01/17 20:00 98.6 89 35 119/55 95 Nasal Cannula 3.0 02/01/17 19:19 Nasal Cannula 3.0 32 02/01/17 19:18 96 33 Nasal Cannula 3.0 32 02/01/17 19:18 96 Nasal Cannula 3.0 32 02/01/17 19:00 91 35 118/52 95 Nasal Cannula 3.0 02/01/17 18:00 92 33 100/45 95 Nasal Cannula 3.0 02/01/17 17:00 94 34 90/46 98 Nasal Cannula 3.0 02/01/17 16:00 117 02/01/17 16:00 98.2 113 33 150/82 98 Nasal Cannula 3.0 02/01/17 15:00 107 34 157/63 99 Nasal Cannula 3.0 02/01/17 15:00 106 32 157/63 100 Nasal Cannula 3.0 02/01/17 14:00 86 30 139/63 100 Nasal Cannula 3.0 Intake and Output 02/01/17 02/02/17 19:00 07:00 Intake Total 4871.35 ml 1688.0 ml Output Total 60 ml 510 ml Balance 4811.35 ml 1178.0 ml Intake IV Total 1716.35 ml 1688.0 ml Other 3155 ml Output Urine Total 60 ml 510 ml # Voids 120 Laboratory Tests Test 02/01/17 15:20 02/02/17 04:10 Sodium Level 158 mEQ/L (135-145) H 170 mEQ/L (135-145) #*H Potassium Level 3.5 mEQ/L (3.4-4.9) 2.9 mEQ/L (3.4-4.9) L Chloride Level 118 mEQ/L (98-107) H 131 mEQ/L (98-107) H Carbon Dioxide Level 19 mEQ/L (20-30) L 23 mEQ/L (20-30) Anion Gap 21 (5-15) H 16 (5-15) H Blood Urea Nitrogen 50 mg/dL (7-23) H 51 mg/dL (7-23) H Creatinine 2.4 mg/dL (0.7-1.2) H 2.8 mg/dL (0.7-1.2) H Estimat Glomerular Filtration Rate mL/min (>60) mL/min (>60) Glucose Level > 745 mg/dL (74-106) *H 73 mg/dL (74-106) #L Calcium Level 8.0 mg/dL (8.6-10.2) L 8.7 mg/dL (8.6-10.2) Prothrombin Time 13.8 SEC (9.30-11.50) H Prothromb Time International Ratio 1.3 (0.9-1.1) H Activated Partial Thromboplast Time 34 SEC (23-33) H Phosphorus Level 2.4 mg/dL (2.5-4.8) L Total Bilirubin 0.2 mg/dL (0.0-1.2) Direct Bilirubin 0.1 mg/dL (0.1-0.3) Aspartate Amino Transf (AST/SGOT) 126 U/L (5-40) H Alanine Aminotransferase (ALT/SGPT) 51 U/L (3-41) H Alkaline Phosphatase 100 U/L (40-129) Total Protein 6.5 g/dL (6.6-8.7) L Albumin 2.4 g/dL (3.5-5.2) L Height (Feet): 5 Height (Inches): 8.00 Weight (Pounds): 139 Medications Current Medications Medications (Trade) Dose Ordered Sig/Feliz Route PRN Reason Start Time Stop Time Status Last Admin Dose Admin Acetaminophen (Tylenol) 650 mg Q4H PRN ORAL T>100.5 02/01/17 10:45 03/03/17 10:44 Albuterol/ Ipratropium 3 ml 3 ml Q4H PRN HHN Shortness of Breath 02/01/17 10:45 02/06/17 10:44 Aminocaproic Acid/ Sodium Chloride (Amicar/Sodium Chloride) 295 ml @ 59 mls/hr Q8H IV 02/02/17 21:00 02/03/17 09:59 Cefepime HCl/ Sodium Chloride (Maxipime/Sodium Chloride) 55 ml @ 110 mls/hr Q24H IVPB 02/02/17 19:00 02/09/17 18:59 Dextrose (Dextrose 50%) STAT PRN IV HYPOGLYCEMIA 02/02/17 07:30 03/04/17 07:29 Dextrose/ Electrolytes 1,000 ml @ 100 mls/hr Q10H IV 02/03/17 12:45 03/05/17 12:44 Insulin Human Regular (NovoLIN R) 5 units PRN PRN IV BS 200-299 02/02/17 07:30 03/04/17 07:29 Insulin Human Regular (NovoLIN R) 10 units PRN PRN IV BS=>300 02/02/17 07:30 03/04/17 07:29 Insulin Human Regular/Sodium Chloride (NovoLIN R/ Sodium Chloride) 101 ml @ 0 mls/hr Q24H IV 02/02/17 12:09 03/04/17 11:59 02/02/17 12:34 Lorazepam (Ativan 2mg/ml 1ml) 2 mg Q2H PRN IV agitation 02/01/17 10:45 02/08/17 10:44 Miscellaneous Medication (Insulin Rate Change) 1 ea PRN PRN MISC Hyperglycemia 02/02/17 08:00 03/04/17 07:59 02/02/17 10:02 Morphine Sulfate (Morphine Sulfate) 4 mg Q4H PRN IVP Severe Pain (Pain Scale 7-10) 02/01/17 10:45 02/08/17 10:44 02/02/17 11:25 Nitroglycerin (Ntg) 0.4 mg Q5M PRN SL Prn Chest Pain 02/01/17 10:45 03/03/17 10:44 Ondansetron HCl (Zofran) 4 mg Q6H PRN IVP Nausea & Vomiting 02/01/17 10:45 03/03/17 10:44 Pantoprazole 40 mg 40 mg Q12HR IVP 02/02/17 21:00 03/04/17 20:59 Polyethylene Glycol (Miralax) 17 gm DAILYPRN PRN ORAL Constipation 02/01/17 10:45 03/03/17 10:44 Potassium Phosphate 30 mm/ Sodium Chloride 560 ml @ 93.3 mls/hr ONCE ONCE IV 02/02/17 13:00 02/02/17 19:00 02/02/17 12:56 Vancomycin HCl 1 ea 1 ea DAILY PRN MISC Per rx protocol 02/02/17 07:45 03/04/17 07:44 Objective Narrative attempted monae placement, unable to pass [address], or [address], obstruction felt at likely bulbar urethra. Assessment/Plan Status: stable Assessment/Plan 81 yo male with multiple medical conditions including DKA, a. fib, hematuria. 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 Unable to access bladder. He is on pradaxa, given renal function medication will still be in system for up to 3- 4 days. Needs bladder irrigation to minimize bleeding and clots. Patient is DNR/DNI. Had long discussion with and nephew, who have agreed to rescind DNR/DNI for the sake of cystoscopic procedure. Understand the grave nature of the situation. Patient currently has severe hypernatremia and still on insulin gtt. Recommend intervention tomorrow AM. 1. NPO p mn 2. OR tomorrow for cystoscopy, possible dilation of stricture and clot evacuation. Sulaiman Wong M.D. Feb 02, 2017 13:58
--- NOTE | 2017-02-02 17:32 | Consultation ---
Consult Note Consult Note ID CONSULT: Venus# [id number] Assessment/Plan ASSESSMENT: 81 y/o male with: // GPC clusters bacteremia 2/4 ?source - real vs contaminant. C&S pending // Sacral decubitus ulcer POA, not grossly infected // Severe sepsis POA - resolved lactic acidosis // Fever - improved, no leukocytosis // DKA / uncontrolled DM2, on insulin gtt // Acute on chronic encephalopathy - septic vs metabolic - CT Head: Chronic and age-related changes. Negative for acute intracranial bleed or mass effect - baseline dementia // Gross hematuria, possible stricture - urology following, plan cystoscopy 02/03 - h/o prostate CA SP prostatectomy, XRT // Acute respiratory distress / hypoxia - CXR 02/01: No acute process // Elevated LFTs r/o hepatobiliary disease // ARF - worse // Hypernatremia / electrolyte imbalance // A-fib, on pradaxa // NH resident // NKDA // DNR PLAN: - continue empiric IV vancomycin, cefepime d# 1 - repeat BCx in AM - check abdo US - cystoscopy per uro - f/u cultures - monitor CBC, temperatures - monitor CMP - glucose control - wound care - guarded prognosis Thanks! Will follow KAMRYN AMIN Feb 02, 2017 17:32
[2017-02-02] MEDS: Cefepime HCl 500 MG in NS 55 ML IVPB SCH (18:30)
[2017-02-02] MEDS: Pantoprazole Inj IVP SCH (20:31)
[2017-02-02] MEDS: AMINOCAPROIC ACID IV SCH ×2 (21:03)
[2017-02-02] MEDS: SODIUM CHLORIDE IV SCH ×2 (21:03)
[2017-02-03] VITALS (29 sets, daily range): BP systolic 73–144; BP diastolic 30–90
[2017-02-03] MEDS: D5W w/KCl 20mEq 1,000 ML IV SCH ×3 (00:33→23:52)
[2017-02-03] MEDS: Morphine Sulfate 4mg/ml Inj IVP PRN (00:41)
[2017-02-03] MEDS: AMINOCAPROIC ACID IV SCH ×2 (06:29)
[2017-02-03] MEDS: SODIUM CHLORIDE IV SCH ×2 (06:29)
[2017-02-03] MEDS: Insulin Rate Change 1 Each MISC PRN ×8 (08:11→19:02)
[2017-02-03] MEDS ORDERED: Sterile Water Irrig 1000ml IRRIG ONE (08:39)
[2017-02-03] MEDS ORDERED: NS Irrig 4000ml IRRIG ONE ×3 (08:39→10:06)
--- NOTE | 2017-02-03 08:49 | Infectious Diseases Prog Note ---
Assessment/Plan Assessment/Plan A: Positive blood culture with CoNS likely contamination Hematuria DKA Hypernatremia Acute renal failure Hematuria P: Continue Cefepime Discontinue Vancomycin Case was D/W @ bedside Subjective ROS Limited/Unobtainable: Yes Allergies: Coded Allergies: No Known Allergies (Unverified , 11/14/16) Objective Vital Signs Last 24 Hour Vital Signs Date Time Temp Pulse Resp B/P Pulse Ox O2 Delivery O2 Flow Rate FiO2 02/03/17 08:00 130 02/03/17 08:00 98.2 120 29 109/62 96 Venturi Mask 15.0 50 02/03/17 07:00 121 33 108/50 93 Venturi Mask 15.0 50 02/03/17 06:00 117 31 120/55 95 Venturi Mask 15.0 50 02/03/17 05:00 98.3 117 31 129/70 95 Venturi Mask 15.0 50 02/03/17 04:00 117 02/03/17 04:00 117 30 138/68 95 Venturi Mask 15.0 50 02/03/17 03:00 117 31 127/61 95 Venturi Mask 15.0 50 02/03/17 02:00 119 31 130/63 95 Venturi Mask 15.0 50 02/03/17 01:20 98.2 02/03/17 01:00 117 35 128/50 96 Venturi Mask 15.0 50 02/03/17 00:00 115 02/03/17 00:00 98.2 115 35 126/55 97 Venturi Mask 15.0 50 02/02/17 23:00 113 32 116/66 96 Venturi Mask 15.0 50 02/02/17 22:00 119 35 120/61 92 Venturi Mask 15.0 50 02/02/17 21:00 123 33 142/69 95 Venturi Mask 15.0 50 02/02/17 20:00 118 02/02/17 20:00 97.6 118 36 121/58 96 Venturi Mask 15.0 50 02/02/17 19:45 Venturi Mask 14.0 55 02/02/17 19:44 102 24 Venturi Mask 14.0 55 02/02/17 19:44 96 Venturi Mask 14.0 55 02/02/17 19:00 110 38 127/51 92 Venturi Mask 15.0 50 02/02/17 18:00 108 38 114/51 92 Venturi Mask 15.0 50 02/02/17 17:00 83 30 143/62 90 Venturi Mask 15.0 50 02/02/17 16:00 98.0 100 32 122/47 95 Venturi Mask 15.0 50 02/02/17 16:00 104 02/02/17 15:00 102 30 123/43 95 Venturi Mask 15.0 50 02/02/17 14:00 110 35 106/57 95 Venturi Mask 15.0 50 02/02/17 13:00 109 29 131/65 100 Venturi Mask 15.0 50 02/02/17 12:00 98.1 108 22 130/56 94 Venturi Mask 15.0 50 02/02/17 12:00 105 02/02/17 11:00 96 34 116/65 100 Venturi Mask 15.0 50 02/02/17 10:00 108 34 115/58 94 Venturi Mask 15.0 50 02/02/17 09:00 90 30 154/53 94 Venturi Mask 15.0 50 Height (Feet): 5 Height (Inches): 8.00 Weight (Pounds): 140 HEENT: other - O2 by mask Respiratory/Chest: lungs clear, respiratory distress Cardiovascular: tachycardia Abdomen: soft, non tender Extremities: no edema Neurologic/Psychiatric: other - poorly responsive Microbiology Date/Time Source Procedure Growth Status 02/01/17 09:10 Blood Blood Culture - Final Staphylococcus Sp Coag Neg Complete 02/01/17 08:55 Blood Blood Culture - Preliminary Staphylococcus Sp Coag Neg Resulted 02/01/17 09:10 Rectum VRE Culture - Final NO VANCOMYCIN RESISTANT ENTEROCOCCUS ... Complete Current Medications Medications (Trade) Dose Ordered Sig/Feliz Route PRN Reason Start Time Stop Time Status Last Admin Dose Admin Acetaminophen (Tylenol) 650 mg Q4H PRN ORAL T>100.5 02/01/17 10:45 03/03/17 10:44 Albuterol/ Ipratropium 3 ml 3 ml Q4H PRN HHN Shortness of Breath 02/01/17 10:45 02/06/17 10:44 Aminocaproic Acid/ Sodium Chloride (Amicar/Sodium Chloride) 295 ml @ 59 mls/hr Q8H IV 02/02/17 21:00 02/03/17 09:59 02/03/17 06:29 Cefepime HCl/ Sodium Chloride (Maxipime/Sodium Chloride) 55 ml @ 110 mls/hr Q24H IVPB 02/02/17 19:00 02/09/17 18:59 02/02/17 18:30 Dextrose (Dextrose 50%) STAT PRN IV HYPOGLYCEMIA 02/02/17 07:30 03/04/17 07:29 Dextrose/ Electrolytes 1,000 ml @ 100 mls/hr Q10H IV 02/03/17 12:45 03/05/17 12:44 02/03/17 00:33 Insulin Human Regular (NovoLIN R) 5 units PRN PRN IV BS 200-299 02/02/17 07:30 03/04/17 07:29 Insulin Human Regular (NovoLIN R) 10 units PRN PRN IV BS=>300 02/02/17 07:30 03/04/17 07:29 Insulin Human Regular/Sodium Chloride (NovoLIN R/ Sodium Chloride) 101 ml @ 0 mls/hr Q24H IV 02/02/17 12:09 03/04/17 11:59 02/02/17 12:34 Lorazepam (Ativan 2mg/ml 1ml) 2 mg Q2H PRN IV agitation 02/01/17 10:45 02/08/17 10:44 Miscellaneous Medication (Insulin Rate Change) 1 ea PRN PRN MISC Hyperglycemia 02/02/17 08:00 03/04/17 07:59 02/03/17 08:11 Morphine Sulfate (Morphine Sulfate) 4 mg Q4H PRN IVP Severe Pain (Pain Scale 7-10) 02/01/17 10:45 02/08/17 10:44 02/03/17 00:41 Nitroglycerin (Ntg) 0.4 mg Q5M PRN SL Prn Chest Pain 02/01/17 10:45 03/03/17 10:44 Ondansetron HCl (Zofran) 4 mg Q6H PRN IVP Nausea & Vomiting 02/01/17 10:45 03/03/17 10:44 Pantoprazole 40 mg 40 mg Q12HR IVP 02/02/17 21:00 03/04/17 20:59 02/02/17 20:31 Polyethylene Glycol (Miralax) 17 gm DAILYPRN PRN ORAL Constipation 02/01/17 10:45 7/9/17 10:44 Vancomycin HCl 1 ea 1 ea DAILY PRN MISC Per rx protocol 02/02/17 07:45 03/04/17 07:44 DANIEL POWER Feb 03, 2017 08:49
[2017-02-03] MEDS: Pantoprazole Inj IVP SCH ×2 (08:57→21:20)
[2017-02-03] MEDS ORDERED: Midazolam 2mg/2ml Inj ONE (09:00)
[2017-02-03] MEDS ORDERED: fentaNYL 100 mcg/2 mL IV ONE (09:00)
[2017-02-03] MEDS ORDERED: NS Irrig 1000ml ONE (09:00)
--- NOTE | 2017-02-03 09:17 | Pre-Procedure Note/Attestation ---
Pre-Procedure Note/Attestation Complete Prior to Procedure Planned Procedure: not applicable Procedure Narrative: cystoscopy possible stricture incision and dilation, possible catheter placement , possible clot evacuation Indications for Procedure Pre-Operative Diagnosis: hematuria Attestation I attest that I discussed the nature of the procedure; its benefits; risks and complications; and alternatives (and the risks and benefits of such alternatives ), prior to the procedure, with the patient (or the patient's legal sales representative publications). I attest that, if there was a reasonable possibility of needing a blood transfusion, the patient (or the patient's legal sales representative publications) was given the [facility] standardized written summary, pursuant to the [place] Blood Safety Act ([place] Health and Safety Code # 1645, as amended). I attest that I re-evaluated the patient just prior to the surgery and that there has been no change in the patient's H&P, except as documented below: Sulaiman Wong M.D. Feb 03, 2017 09:17
[2017-02-03 09:26] LABS: MEAN CORPUSCULAR HEMOGLOBIN 29.5 PG (27.0-31.0); MEAN CORPUSCULAR HGB CONC 31.2 G/DL (32.0-36.0); MEAN CORPUSCULAR VOLUME 94 FL (80-99); MEAN PLATELET VOLUME 8.7 FL (6.5-10.1); PLATELET COUNT 213 K/UL (150-450); RED BLOOD COUNT 4.11 M/UL (4.70-6.10); WHITE BLOOD COUNT 9.3 K/UL (4.8-10.8)
[2017-02-03 09:45] LABS: ALANINE AMINOTRANSFERASE 68 U/L (3-41); ALBUMIN/GLOBULIN RATIO 0.5 (1.0-2.7); ANION GAP 18 (5-15); ASPARTATE AMINO TRANSFERASE 95 U/L (5-40); CALCIUM 8.1 mg/dL (8.6-10.2); CARBON DIOXIDE 21 mEQ/L (20-30); CHLORIDE 126 mEQ/L (98-107); CREATININE 2.1 mg/dL (0.7-1.2); HEMOLYSIS 4; POTASSIUM 3.6 mEQ/L (3.4-4.9); TOTAL PROTEIN 5.5 g/dL (6.6-8.7)
[2017-02-03 09:49] LABS: HEMOLYSIS 1; INR 1.4 (0.9-1.1); IRON 27 ug/dL (59-158); PROTHROMBIN TIME 14.4 SEC (9.30-11.50); TOTAL IRON BINDING CAPACITY 94 ug/dL (250-400)
[2017-02-03 10:10] LABS: SODIUM 165 mEQ/L (135-145)
--- NOTE | 2017-02-03 10:17 | Anethesia Preoperative Eval ---
Anesthesia Pre-op PMH/ROS General Date of Evaluation: Feb 03, 2017 Time of Evaluation: 08:48 Anesthesiologist: Bee ASA Score: ASA 4 Mallampati Score Class I : Soft palate, uvula, fauces, pillars visible Class II: Soft palate, uvula, fauces visible Class III: Soft palate, base of uvula visible Class IV: Only hard plate visible Mallampati Classification: Class III Surgeon: Judith Diagnosis: Macrrohematuria Surgical Procedure: Cysto Anesthesia History: none Family History: no anesthesia problems Allergies: Coded Allergies: No Known Allergies (Unverified , 11/14/16) Past Medical History Cardiovascular: Reports: HTN, arrhythmia - A fib., Denies: CAD, [place], other, valve dz Gastrointestinal/Genitourinary: Reports: GERD, other - dysphagia, Denies: CRI, ESRD Neurologic/Psychiatric: Reports: CVA, dementia, Denies: TIA, depression/anxiety, other Endocrine: Reports: DM - admitted with hyperglacimia, Denies: hypothyroidism, other, steroids HEENT: Denies: LUMBEE (L), LUMBEE (R), cataract (L), cataract (R), glaucoma, other Hematology/Immune: Reports: bleeding disorder - anticoagulated, Denies: DVT, anemia, other Musculoskeletal/Integumentary: Reports: DJD, other - contracted, Denies: DDD, OA, RA, edema Other: other - malnourished PMH Narrative: as above PSxH Narrative: prostatectomy Anesthesia Pre-op Phys. Exam Physician Exam Last Vital Signs Date Time Temp Pulse Resp B/P Pulse Ox O2 Delivery O2 Flow Rate FiO2 02/03/17 09:00 124 35 111/90 98 Venturi Mask 15.0 50 02/03/17 08:00 98.2 Constitutional: NAD Neurologic: other - unable to obtaine Cardiovascular: other - IIR Respiratory: other - dyspnea at rest up to 48/ min Gastrointestinal: S/NT/ND Airway Exam Mallampati Score: Class III MO: limited - poor oral care some necrotic tissue on the lower lip Neck: stiff ROM: limited Teeth: missing Dentures: no lower, no upper Anesthesia Pre-op A/P Labs Hematology Test 02/03/17 08:00 White Blood Count 9.3 K/UL (4.8-10.8) Red Blood Count 4.11 M/UL (4.70-6.10) L Hemoglobin 12.1 G/DL (14.2-18.0) L Hematocrit 38.8 % (42.0-52.0) L Mean Corpuscular Volume 94 FL (80-99) Mean Corpuscular Hemoglobin 29.5 PG (27.0-31.0) Mean Corpuscular Hemoglobin Concent 31.2 G/DL (32.0-36.0) L Red Cell Distribution Width 14.0 % (11.6-14.8) Platelet Count 213 K/UL (150-450) Mean Platelet Volume 8.7 FL (6.5-10.1) Neutrophils (%) (Auto) % (45.0-75.0) Lymphocytes (%) (Auto) % (20.0-45.0) Monocytes (%) (Auto) % (1.0-10.0) Eosinophils (%) (Auto) % (0.0-3.0) Basophils (%) (Auto) % (0.0-2.0) Neutrophils % (Manual) Pending Lymphocytes % (Manual) Pending Platelet Estimate Pending Platelet Morphology Pending Erythrocyte Sedimentation Rate Pending Reticulocyte Count Pending Coagulation Test 02/03/17 08:00 Prothrombin Time 14.4 SEC (9.30-11.50) H Prothromb Time International Ratio 1.4 (0.9-1.1) H Activated Partial Thromboplast Time 38 SEC (23-33) H Chemistry Test 02/03/17 08:00 Sodium Level Pending Potassium Level Pending Chloride Level Pending Carbon Dioxide Level Pending Blood Urea Nitrogen Pending Creatinine Pending Estimat Glomerular Filtration Rate Pending Glucose Level Pending Uric Acid Pending Calcium Level Pending Phosphorus Level Pending Magnesium Level Pending Iron Level 27 ug/dL (59-158) L Total Iron Binding Capacity 94 ug/dL (250-400) L Percent Iron Saturation 29 % (15-50) Unsaturated Iron Binding 67 ug/dL (112-346) L Ferritin Pending Total Bilirubin Pending Gamma Glutamyl Transpeptidase Pending Aspartate Amino Transf (AST/SGOT) Pending Alanine Aminotransferase (ALT/SGPT) Pending Alkaline Phosphatase Pending Lactate Dehydrogenase Pending Total Creatine Kinase Pending C-Reactive Protein, Quantitative Pending Pro-B-Type Natriuretic Peptide Pending Total Protein Pending Albumin Pending Globulin Pending Carcinoembryonic Antigen 7.7 ng/mL H Vitamin B12 Level 1496 pg/mL (211-946) H Folate Pending Risk Assessment & Plan Assessment: ASA 4 Plan: GA with LMA Status Change Before Surgery: No Pre-Antibiotics Drug: Ancef 1 gr. Given Within 1 Hr of Incision: Yes Time Given: 09:22 EUSEBIA MICHAUD M.D. Feb 03, 2017 10:17
[2017-02-03] MEDS ORDERED: Bacitracin Oint 15gm Tube TOPIC ONE (10:19)
[2017-02-03] MEDS ORDERED: DiphenhydrAMINE 50mg/ml Inj IVP PRN (10:30)
[2017-02-03] MEDS ORDERED: fentaNYL 100 mcg/2 mL IV PRN (10:30)
[2017-02-03 10:32] LABS: BAND NEUTROPHILS % (MANUAL) 17 % (0-8); CRP QUANT 30.2 mg/dL (< 0.5); EOSINOPHILS % (MANUAL) 1 % (0-3); LYMPHOCYTES % (MANUAL) 11 % (20-45); MAGNESIUM 1.9 mg/dL (1.7-2.5); NEUTROPHILS % (MANUAL) 69 % (45-75); PHOSPHORUS 3.1 mg/dL (2.5-4.8); TOTAL CELLS COUNTED 100; URIC ACID 8.3 mg/dL (3.0-7.5)
[2017-02-03 10:33] LABS: ANISOCYTOSIS 1+; BASOPHILS % (MANUAL) 0 % (0-2); HYPOCHROMASIA 1+; PLATELET ESTIMATE ADEQUATE; PLATELET MORPHOLOGY NORMAL
[2017-02-03 10:39] LABS: PATH BLOOD SMEAR/OMC SENT TO PATHOLOGIST
--- NOTE | 2017-02-03 10:39 | Brief Operative Note ---
Immediate Post Operative Note Operative Note Pre-op Diagnosis: hematuria Procedure: cystoscopy, stricture incision and dilation, clot evacuation, catheter placement Post-op Diagnosis: same as pre-op Findings: consistent w/pre-op dx studies Surgeon: brett Anesthesiologist: allyssa Anesthesia: general Specimen: none Complications: none Condition: stable Estimated Blood Loss: none Drains: other - [address] monae Implant(s) used?: No Sulaiman Wong M.D. Feb 03, 2017 10:39
[2017-02-03 10:42] LABS: FERRITIN 1371 ng/mL (10-230)
[2017-02-03 10:43] LABS: RETICULOCYTE COUNT 0.2 % (0.0-2.0)
[2017-02-03 10:55] LABS: ERYTHROCYTE SEDIMENTATION RATE 79 MM/HR (0-30)
--- NOTE | 2017-02-03 10:56 | Immediate Post-Op Evaluation ---
Immediate Post-Op Evalulation Immediate Post-Op Evalulation Procedure: Cysto, evacuation of clots, uretral stricture release, catheter placement Date of Evaluation: Feb 03, 2017 Time of Evaluation: 10:54 IV Fluids: 200 Blood Products: none Estimated Blood Loss: 50 Urinary Output: N/A Blood Pressure Systolic: 127 Blood Pressure Diastolic: 48 Pulse Rate: 110 Respiratory Rate: 44 O2 Sat by Pulse Oximetry: 94 Temperature (Fahrenheit): 98.3 Pain Score (1-10): 2 Nausea: No Vomiting: No Complications none Patient Status: reacts, patent, none Hydration Status: adequate EUSEBIA MICHAUD M.D. Feb 03, 2017 10:56
--- NOTE | 2017-02-03 11:18 | Diagnostic Imaging Report ---
Indication: Dyspnea Comparison: 02/01/17 A single view chest radiograph was obtained. Findings: Central extruded groundglass opacities have developed over the last 2 days. Heart size remains relatively normal. Pulmonary vascularity appears normal. Impression: Development of bilateral infiltrates versus alveolar edema. Please correlate clinically.
--- NOTE | 2017-02-03 11:24 | General Progress Note ---
Assessment/Plan Status: stable - from renal stand Status Narrative Hgb dropped- Renal parameters improved Assessment/Plan - Acute renal failure- - Mainly pre renal due to free water deficit, leading to hyperNatremia (1) DKA, type 1 (2) Sepsis (3) Acute encephalopathy (4) prostate Cancer, rukhsana hematuria (5) Alzheimer's dementia (6) HypoAlbuminemia Plan: Cysto today- free Water IV and PO Monitor Na and K ... Monitor BS and BP Avoid Nephrotoxics Per orders Subjective ROS Limited/Unobtainable: No Allergies: Coded Allergies: No Known Allergies (Unverified , 11/14/16) Objective Last 24 Hour Vital Signs Date Time Temp Pulse Resp B/P Pulse Ox O2 Delivery O2 Flow Rate FiO2 02/03/17 11:15 99.8 109 27 122/50 95 Non-Rebreather 10.0 02/03/17 11:10 114 26 144/59 94 Non-Rebreather 10.0 02/03/17 11:00 110 28 123/67 93 Simple Mask 10.0 02/03/17 10:56 110 44 94 02/03/17 10:50 114 35 127/48 92 Simple Mask 10.0 02/03/17 10:45 110 31 109/58 92 Simple Mask 10.0 02/03/17 10:42 99.6 110 33 109/58 93 Simple Mask 10.0 02/03/17 10:42 116 02/03/17 09:00 124 35 111/90 98 Venturi Mask 15.0 50 02/03/17 08:53 100 Venturi Mask 14.0 55 02/03/17 08:53 130 29 Venturi Mask 14.0 55 02/03/17 08:53 Venturi Mask 14.0 55 02/03/17 08:00 130 02/03/17 08:00 98.2 120 29 109/62 96 Venturi Mask 15.0 50 02/03/17 07:00 121 33 108/50 93 Venturi Mask 15.0 50 02/03/17 06:00 117 31 120/55 95 Venturi Mask 15.0 50 02/03/17 05:00 98.3 117 31 129/70 95 Venturi Mask 15.0 50 02/03/17 04:00 117 02/03/17 04:00 117 30 138/68 95 Venturi Mask 15.0 50 02/03/17 03:00 117 31 127/61 95 Venturi Mask 15.0 50 02/03/17 02:00 119 31 130/63 95 Venturi Mask 15.0 50 02/03/17 01:20 98.2 02/03/17 01:00 117 35 128/50 96 Venturi Mask 15.0 50 02/03/17 00:00 115 02/03/17 00:00 98.2 115 35 126/55 97 Venturi Mask 15.0 50 02/02/17 23:00 113 32 116/66 96 Venturi Mask 15.0 50 02/02/17 22:00 119 35 120/61 92 Venturi Mask 15.0 50 02/02/17 21:00 123 33 142/69 95 Venturi Mask 15.0 50 02/02/17 20:00 118 02/02/17 20:00 97.6 118 36 121/58 96 Venturi Mask 15.0 50 02/02/17 19:45 Venturi Mask 14.0 55 02/02/17 19:44 102 24 Venturi Mask 14.0 55 02/02/17 19:44 96 Venturi Mask 14.0 55 02/02/17 19:00 110 38 127/51 92 Venturi Mask 15.0 50 02/02/17 18:00 108 38 114/51 92 Venturi Mask 15.0 50 02/02/17 17:00 83 30 143/62 90 Venturi Mask 15.0 50 02/02/17 16:00 98.0 100 32 122/47 95 Venturi Mask 15.0 50 02/02/17 16:00 104 02/02/17 15:00 102 30 123/43 95 Venturi Mask 15.0 50 02/02/17 14:00 110 35 106/57 95 Venturi Mask 15.0 50 02/02/17 13:00 109 29 131/65 100 Venturi Mask 15.0 50 02/02/17 12:00 98.1 108 22 130/56 94 Venturi Mask 15.0 50 02/02/17 12:00 105 Intake and Output 02/02/17 02/03/17 19:00 07:00 Intake Total 2043.4 ml 1467.4 ml Output Total 840 ml 30 ml Balance 1203.4 ml 1437.4 ml Intake IV Total 2043.4 ml 1467.4 ml Output Urine Total 740 ml 30 ml Stool Total 100 ml # Voids 4 # Bowel Movements 3 3 Laboratory Tests 02/03/17 08:00: White Blood Count 9.3, Red Blood Count 4.11L, Hemoglobin 12.1L, Hematocrit 38.8L , Mean Corpuscular Volume 94, Mean Corpuscular Hemoglobin 29.5, Mean Corpuscular Hemoglobin Concent 31.2L, Red Cell Distribution Width 14.0, Platelet Count 213, Mean Platelet Volume 8.7, Neutrophils (%) (Auto) , Lymphocytes (%) (Auto) , Monocytes (%) (Auto) , Eosinophils (%) (Auto) , Basophils (%) (Auto) , Differential Total Cells Counted 100, Neutrophils % ( Manual) 69, Lymphocytes % (Manual) 11L, Monocytes % (Manual) 2, Eosinophils % ( Manual) 1, Basophils % (Manual) 0, Band Neutrophils 17H, Platelet Estimate Adequate, Platelet Morphology Normal, Hypochromasia 1+, Anisocytosis 1+, Erythrocyte Sedimentation Rate 79H, Reticulocyte Count 0.2, Prothrombin Time 14.4H, Prothromb Time International Ratio 1.4H, Activated Partial Thromboplast Time 38H, Sodium Level 165*H, Potassium Level 3.6, Chloride Level 126H, Carbon Dioxide Level 21, Anion Gap 18H, Blood Urea Nitrogen 42H, Creatinine 2.1H, Estimat Glomerular Filtration Rate , Glucose Level 164H, Uric Acid 8.3H, Calcium Level 8.1L, Phosphorus Level 3.1, Magnesium Level 1.9, Iron Level 27L, Total Iron Binding Capacity 94L, Percent Iron Saturation 29, Unsaturated Iron Binding 67L, Ferritin 1371H, Total Bilirubin 0.4, Gamma Glutamyl Transpeptidase 17, Aspartate Amino Transf (AST/SGOT) 95H, Alanine Aminotransferase (ALT/SGPT) 68H, Alkaline Phosphatase 78, Lactate Dehydrogenase [Pending], Total Creatine Kinase 1533H, C-Reactive Protein, Quantitative 30.2H, Pro-B-Type Natriuretic Peptide 1124H, Total Protein 5.5L, Albumin 2.0L, Globulin 3.5, Albumin/Globulin Ratio 0.5L, Carcinoembryonic Antigen 7.7H, Vitamin B12 Level 1496H, Folate [ Pending] Height (Feet): 5 Height (Inches): 8.00 Weight (Pounds): 140 General Appearance: lethargic Genitourinary/Rectal: other - hematuria ++ Objective other PE not changed EDIS CASEY Feb 03, 2017 11:24
--- NOTE | 2017-02-03 12:02 | Pulmonolgy Critical Care Note ---
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, 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 with: 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 Critical Care - Objective Last 24 Hour Vital Signs Date Time Temp Pulse Resp B/P Pulse Ox O2 Delivery O2 Flow Rate FiO2 02/03/17 11:15 99.8 109 27 122/50 95 Non-Rebreather 10.0 02/03/17 11:10 114 26 144/59 94 Non-Rebreather 10.0 02/03/17 11:00 110 28 123/67 93 Simple Mask 10.0 02/03/17 10:56 110 44 94 02/03/17 10:50 114 35 127/48 92 Simple Mask 10.0 02/03/17 10:45 110 31 109/58 92 Simple Mask 10.0 02/03/17 10:42 99.6 110 33 109/58 93 Simple Mask 10.0 02/03/17 10:42 116 02/03/17 09:00 124 35 111/90 98 Venturi Mask 15.0 50 02/03/17 08:53 100 Venturi Mask 14.0 55 02/03/17 08:53 130 29 Venturi Mask 14.0 55 02/03/17 08:53 Venturi Mask 14.0 55 02/03/17 08:00 130 02/03/17 08:00 98.2 120 29 109/62 96 Venturi Mask 15.0 50 02/03/17 07:00 121 33 108/50 93 Venturi Mask 15.0 50 02/03/17 06:00 117 31 120/55 95 Venturi Mask 15.0 50 02/03/17 05:00 98.3 117 31 129/70 95 Venturi Mask 15.0 50 02/03/17 04:00 117 02/03/17 04:00 117 30 138/68 95 Venturi Mask 15.0 50 02/03/17 03:00 117 31 127/61 95 Venturi Mask 15.0 50 02/03/17 02:00 119 31 130/63 95 Venturi Mask 15.0 50 02/03/17 01:20 98.2 02/03/17 01:00 117 35 128/50 96 Venturi Mask 15.0 50 02/03/17 00:00 115 02/03/17 00:00 98.2 115 35 126/55 97 Venturi Mask 15.0 50 02/02/17 23:00 113 32 116/66 96 Venturi Mask 15.0 50 02/02/17 22:00 119 35 120/61 92 Venturi Mask 15.0 50 02/02/17 21:00 123 33 142/69 95 Venturi Mask 15.0 50 02/02/17 20:00 118 02/02/17 20:00 97.6 118 36 121/58 96 Venturi Mask 15.0 50 02/02/17 19:45 Venturi Mask 14.0 55 02/02/17 19:44 102 24 Venturi Mask 14.0 55 02/02/17 19:44 96 Venturi Mask 14.0 55 02/02/17 19:00 110 38 127/51 92 Venturi Mask 15.0 50 02/02/17 18:00 108 38 114/51 92 Venturi Mask 15.0 50 02/02/17 17:00 83 30 143/62 90 Venturi Mask 15.0 50 02/02/17 16:00 98.0 100 32 122/47 95 Venturi Mask 15.0 50 02/02/17 16:00 104 02/02/17 15:00 102 30 123/43 95 Venturi Mask 15.0 50 02/02/17 14:00 110 35 106/57 95 Venturi Mask 15.0 50 02/02/17 13:00 109 29 131/65 100 Venturi Mask 15.0 50 Status: somnolent Condition: critical HEENT: atraumatic Neck: full ROM Heart: HR/BP stable Abdomen: soft, feeding tube Extremities: no C/C/E Decubiti: location Micro: Microbiology Date/Time Source Procedure Growth Status 02/01/17 09:10 Blood Blood Culture - Final Staphylococcus Sp Coag Neg Complete 02/01/17 08:55 Blood Blood Culture - Preliminary Staphylococcus Sp Coag Neg Resulted 02/01/17 09:10 Nasal Nares MRSA Culture - Final NO METHICILLIN RESISTANT STAPH AUREUS... Complete 02/01/17 09:10 Rectum VRE Culture - Final NO VANCOMYCIN RESISTANT ENTEROCOCCUS ... Complete Accucheck: 178 Critical Care - Subjective ROS Limited/Unobtainable: Yes ICU Day: 2 Condition: critical FI02: 50 Sputum Amount: Small I&O: Intake and Output 02/02/17 02/03/17 19:00 07:00 Intake Total 2043.4 ml 1467.4 ml Output Total 840 ml 30 ml Balance 1203.4 ml 1437.4 ml Intake IV Total 2043.4 ml 1467.4 ml Output Urine Total 740 ml 30 ml Stool Total 100 ml # Voids 4 # Bowel Movements 3 3 CXR: no change Labs: Laboratory Tests Test 02/03/17 08:00 White Blood Count 9.3 K/UL (4.8-10.8) Red Blood Count 4.11 M/UL (4.70-6.10) L Hemoglobin 12.1 G/DL (14.2-18.0) L Hematocrit 38.8 % (42.0-52.0) L Mean Corpuscular Volume 94 FL (80-99) Mean Corpuscular Hemoglobin 29.5 PG (27.0-31.0) Mean Corpuscular Hemoglobin Concent 31.2 G/DL (32.0-36.0) L Red Cell Distribution Width 14.0 % (11.6-14.8) Platelet Count 213 K/UL (150-450) Mean Platelet Volume 8.7 FL (6.5-10.1) Neutrophils (%) (Auto) % (45.0-75.0) Lymphocytes (%) (Auto) % (20.0-45.0) Monocytes (%) (Auto) % (1.0-10.0) Eosinophils (%) (Auto) % (0.0-3.0) Basophils (%) (Auto) % (0.0-2.0) Differential Total Cells Counted 100 Neutrophils % (Manual) 69 % (45-75) Lymphocytes % (Manual) 11 % (20-45) L Monocytes % (Manual) 2 % (1-10) Eosinophils % (Manual) 1 % (0-3) Basophils % (Manual) 0 % (0-2) Band Neutrophils 17 % (0-8) H Platelet Estimate Adequate Platelet Morphology Normal Hypochromasia 1+ Anisocytosis 1+ Erythrocyte Sedimentation Rate 79 MM/HR (0-30) H Reticulocyte Count 0.2 % (0.0-2.0) Prothrombin Time 14.4 SEC (9.30-11.50) H Prothromb Time International Ratio 1.4 (0.9-1.1) H Activated Partial Thromboplast Time 38 SEC (23-33) H Sodium Level 165 mEQ/L (135-145) *H Potassium Level 3.6 mEQ/L (3.4-4.9) Chloride Level 126 mEQ/L (98-107) H Carbon Dioxide Level 21 mEQ/L (20-30) Anion Gap 18 (5-15) H Blood Urea Nitrogen 42 mg/dL (7-23) H Creatinine 2.1 mg/dL (0.7-1.2) H Estimat Glomerular Filtration Rate mL/min (>60) Glucose Level 164 mg/dL (74-106) H Uric Acid 8.3 mg/dL (3.0-7.5) H Calcium Level 8.1 mg/dL (8.6-10.2) L Phosphorus Level 3.1 mg/dL (2.5-4.8) Magnesium Level 1.9 mg/dL (1.7-2.5) Iron Level 27 ug/dL (59-158) L Total Iron Binding Capacity 94 ug/dL (250-400) L Percent Iron Saturation 29 % (15-50) Unsaturated Iron Binding 67 ug/dL (112-346) L Ferritin 1371 ng/mL (10-230) H Total Bilirubin 0.4 mg/dL (0.0-1.2) Gamma Glutamyl Transpeptidase 17 U/L (8-61) Aspartate Amino Transf (AST/SGOT) 95 U/L (5-40) H Alanine Aminotransferase (ALT/SGPT) 68 U/L (3-41) H Alkaline Phosphatase 78 U/L (40-129) Lactate Dehydrogenase Pending Total Creatine Kinase 1533 U/L (38-174) H C-Reactive Protein, Quantitative 30.2 mg/dL (< 0.5) H Pro-B-Type Natriuretic Peptide 1124 pg/mL (0-450) H Total Protein 5.5 g/dL (6.6-8.7) L Albumin 2.0 g/dL (3.5-5.2) L Globulin 3.5 g/dL Albumin/Globulin Ratio 0.5 (1.0-2.7) L Carcinoembryonic Antigen 7.7 ng/mL H Vitamin B12 Level 1496 pg/mL (211-946) H Folate Pending FEDE ANSARI Feb 03, 2017 12:02
--- NOTE | 2017-02-03 17:30 | Consultation ---
DATE OF CONSULTATION: 02/02/2017 INFECTIOUS DISEASE CONSULTATION CONSULTING PHYSICIAN: Juan C Moore M.D. REFERRING PHYSICIAN: Ary Pierce M.D. REASON FOR CONSULTATION: Bacteremia. HISTORY OF PRESENT ILLNESS: This is an 81-year-old demented male, care home resident, admitted on 02/01/2017 with altered mental status. Evidence of diabetic ketoacidosis, gram-positive cocci in clusters bacteremia, severe sepsis, fever, gross hematuria, elevated LFTs, acute renal failure, hypernatremia, and electrolyte imbalance. A CT of the head shows no acute findings. He has been started on empiric vancomycin and cefepime, and ID now consulted to assist in management. PAST MEDICAL HISTORY: 1. Dementia. 2. Hypertension. 3. History of prostate cancer, status post prostatectomy and radiation. 4. Hyperthyroidism. 5. Diabetes. 6. Atrial fibrillation, on Pradaxa. PAST SURGICAL HISTORY: Prostatectomy. FAMILY HISTORY: Noncontributory. SOCIAL HISTORY: The patient is a resident of a care home. Unknown habits. He has family involved in his care. ALLERGIES: No known drug allergies. MEDICATIONS: 1. Vancomycin day #1. 2. Cefepime day #1. 3. Protonix. 4. Aminocaproic acid. 5. Insulin drip. REVIEW OF SYSTEMS: Unable to obtain. PHYSICAL EXAMINATION: VITAL SIGNS: Maximum temperature 101.8, blood pressure 143/62, heart rate in 80s, respiratory rate 30s, saturating 90% on Venti mask. GENERAL: The patient is in mild respiratory distress. HEENT: No thrush. CARDIOVASCULAR: Regular rate and rhythm. No murmurs. PULMONARY: Coarse breath sounds bilaterally. ABDOMINAL: Bowel sounds present. Soft, nondistended, and nontender. Inman catheter in place with gross blood. EXTREMITIES: Edema. SKIN: No rash. LABORATORY DATA: White blood cell count 10.1, with left shift, hemoglobin 15.2, platelets 331,000. Sodium 170, potassium 3.9, chloride 131, bicarb 23, BUN 51, creatinine 3.8. AST 126, ALT 51, alkaline phosphatase 100, total bilirubin 0.2, albumin 3.5. Troponin negative x1. Lactic acid 4.1, decreased to 1.7. Alcohol level negative. Acetone level is positive and small. MICROBIOLOGY: On 02/01/2017, blood culture gram-positive cocci in clusters in 2/4 sets. IMAGIN. On 02/01/2017, CT of the head with no acute findings. Chronic age-related changes. 2. On 02/01/2017, chest x-ray, no acute findings. ASSESSMENT: 1. Gram positive cocci in clusters, bacteremia in 2/4 sets, question source. May be real versus contaminant. Culture and sensitivity is pending. 2. Sacral decubitus ulcer present on admission and not grossly infected. 3. Severe sepsis present on admission with lactic acidosis, now resolved. 4. Fever, improved and no leukocytosis. 5. Diabetic ketoacidosis. 6. Uncontrolled diabetes type 2 on an insulin drip. 7. Acute on chronic encephalopathy may be septic or metabolic. CT of the head shows chronic age-related changes. No acute findings. He has dementia at baseline. 8. Gross hematuria and possible stricture. Urology is following and planned cystoscopy. 9. He does have a history of prostate cancer, status post prostatectomy and radiation. 10. Acute respiratory distress/hypoxia. Chest x-ray shows no acute process. 11. Elevated liver function test, rule out hepatobiliary disease. 12. Acute renal failure, worsening. 13. Hypernatremia/electrolyte imbalance. 14. Atrial fibrillation, on Pradaxa. 15. jail resident. 16. No known drug allergies. 17. DNR. PLAN: 1. Continue empiric IV vancomycin and cefepime day #1. 2. Repeat blood cultures in the morning. 3. Check abdominal ultrasound. 4. Cystoscopy per urology. 5. Followup cultures. 6. Monitor CBC and temperatures. 7. Monitor CMP. 8. Glucose control. 9. Wound care. 10. Guarded prognosis. 11. Discussed with nurse. Thank you. We will follow. Juan C Moore M.D. DR: CONRADO JOB#: [id number] CC: Ary Pierce M.D.; Fax#: [phone]
[2017-02-03] MEDS: Cefepime HCl 500 MG in NS 55 ML IVPB SCH (19:01)
--- NOTE | 2017-02-03 22:30 | Operative Note - Dictated ---
DATE OF OPERATION: 02/03/2017 NAME OF PRIMARY SURGEON: Sulaiman Wong M.D. PREOPERATIVE DIAGNOSES: 1. Hematuria. 2. Bladder neck contracture. POSTOPERATIVE DIAGNOSES: 1. Hematuria. 2. Bladder neck contracture. PROCEDURE PERFORMED: Cystoscopy with incision and dilation of bladder neck contracture with clot evacuation and complex catheter placement. ANESTHESIA: General. EBL: Minimal. COMPLICATIONS: None. DRAINS: A 22-Dutch, three-way Inman catheter with 30 mL of water in the balloon. SPECIMEN: None. PREOP HISTORY: The patient is an 81-year-old gentleman who is homebound in the assisted-living facility and nonverbal due to dementia, who was admitted for severe diabetic ketoacidosis. A Inman catheter was placed at the time and found to have severe hematuria. Attempts were made to pass a catheter yesterday with no avail likely due to bulbourethral stricture and/or bladder neck contracture. The patient's hemoglobin and hematocrit were stable and he was hemodynamically stable. He had a significantly high sodium at 170 and was still on an insulin drip. Decision was made to stabilize and plan for intervention the next day. The patient is a DNR/DNI, but I had a long discussion with patient's as well as nephew, who agreed to temporary rescinding of the DNR/DNI for the sake of this procedure as his DKA was improving. The patient's was made aware of the risks and benefits of the procedure. Risks including, but not limited to, bleeding, infection, bladder injury, urethral injury, ureteral injury, need for further surgery, persistent hematuria, and worsening of contracture. The patient's understood these risks. She signed the consent. The patient was then taken to the operating room. OPERATIVE PROCEDURE: The patient brought to the operating room, where general anesthesia was achieved easily. He is placed in the dorsal lithotomy position. All pressure points padded. He received 2 g of IV Ancef as preop antibiotics. Perineum was prepped and draped in a sterile fashion. A 22-Dutch cystoscope sheath was placed. The anterior neck was visualized and was normal, up to a level of bulbourethral where significant clot was noted is likely from false passage created ventrally. Difficult initially to navigate towards the true urethra due to the false passage as well as significant amount of old clot. Some of clot was evacuated manually with the assistance of the basket and grasper ultimately with dorsal direction of the cystoscope was able to access the true urethra and a bladder neck contracture was noted approximately 18-Dutch in size, but the bladder was easily visible through this. The scope was passed with gentle pressure allowing dilation with contracture. The bladder was entered and evacuated of all clots using an Betyah evacuator. After good clot evacuating has been done, the bladder was interrogated showing normal anatomical ureteral orifices. No tumors, masses, lesions, or stones were seen. There were several inflamed and irritated vessels along the bladder wall, but no rukhsaan obvious bleeders. At this point, a superstiff guidewire was coiled in the bladder and the scope was removed. A 22-Dutch three-way Inman catheter with a Councill tip, which was created with the scissor was then passed over the wire and passed successfully into the bladder. A 30 mL of water was filled in the balloon and the catheter irrigated very nicely manually. It was attached to continuous bladder irrigation. At this point, the patient was woken up and taken to recovery room in stable fashion. The irrigation was running light pink at the end of the case. I was present for the entire case. All needle and instrument counts were correct at the end of the case. PLAN: 1. The patient will return for monitoring in the treatment of his diabetic ketoacidosis. 2. Plan for continuous bladder irrigation for 24 hours. 3. Plan to hold off on Pradaxa until hematuria is improved. 4. Plan to re-evaluate irrigation tomorrow after full 24 hours of irrigation. Sulaiman Wong DR: Virgilio JOB#: [id number] CC:
[2017-02-04] VITALS: BP 100/45
[2017-02-04] MEDS: Insulin Rate Change 1 Each MISC PRN ×2 (00:33→01:19)
[2017-02-04 01:00] VITALS: BP 84/48
[2017-02-04 01:30] VITALS: BP 74/30
[2017-02-04 01:45] VITALS: BP 40/30
[2017-02-04 01:47] VITALS: BP 0/0
--- NOTE | 2017-02-05 10:13 | Discharge Summary ---
Discharge Summary Hospital Course Date of Admission Feb 01, 2017 at 10:36 Date of Discharge Feb 04, 2017 at 05:27 Admitting Diagnosis diabetic ketoacidosis DIONNE Seth Carrillo is a 81 year old male who was admitted on Feb 01, 2017 at 10:36 for Diabetic Ketoacidosis Hospital Course summary #[id number] Discharge Discharge Disposition Patient , DNR status Discharge Diagnoses: Discharge Instructions Discharge Instructions Special Instructions I have been assigned to complete a D/C Summary on this account. I was not involved in the patient management Erika Birch NP (Vanchtein) Feb 05, 2017 10:13
--- NOTE | 2017-02-05 12:56 | Diagnostic Imaging Report ---
APPROVED REPORT CPT Code: 68185 Present Symptoms Shortness of breath BILATERAL: Imaging reveals a patent deep venous system bilaterally. There is no evidence of thrombus within the femoral, popliteal or tibial segments. The greater saphenous veins are also within normal limits. Doppler indicates normal spontaneous flow within these segments.
--- NOTE | 2017-02-05 18:18 | Cardiology Report ---
APPROVED REPORT EKG Measurement Heart [id number] Sinus tachycardia with 1st degree AV block Left axis deviation Abnormal ECG
--- NOTE | 2017-02-06 03:30 | Discharge Summary 2 SIG ---
SUMMARY DATE OF ADMISSION: 02/01/2017 DATE OF EXPIRATION: 02/04/2017 REASON FOR ADMISSION: 81-year-old male, resident of assisted living, presented to emergency department with altered level of consciousness. The patient with past medical history of Alzheimer dementia, prostate cancer, hypertension and diabetes. In the emergency department, the patient was found to have blood sugar -881, sodium -159, BUN -47, and creatinine- 2.8. Lactic acid - 4.1. Anion gap - 21. Ketones +2 in urine, CO2 within normal limits - 24. Chest x-ray initially revealed no acute cardiopulmonary disease. CT of the head revealed no acute intracranial pathology. No leukocytosis. Fever -101.8 upon presentation. The patient was started on aggressive IV fluid. Patient was pancultured and started on broad-spectrum antibiotics. The patient was started on insulin drip and was transferred to ICU for further management. The patient had a seizure while in the emergency department. Placed on supplemental oxygen via nasal cannula, pulse oximetry initially stable. Patient DNR/DNI status upon admission. ADMITTING DIAGNOSES: 1. Sepsis. 2. Respiratory insufficiency 3. Acute encephalopathy. 4. Diabetic ketoacidosis. 5. Acute renal failure/acute tubular necrosis. 6. Hypernatremia. 6. Dehydration. 7. Possible urinary tract infection. 8. Seizures. 9. Alzheimer dementia. HOSPITAL COURSE: The patient was admitted to ICU. The patient was started on insulin drip. Blood sugar was managed with insulin drip as per protocol. The patient was on the IV fluids. Nephrology and ID consults were requested. Per aircraft instrument repairer, acute renal failure was likely prerenal due to the free water deficit leading to hypernatremia as well. Free water was given intravenously, sodium and potassium were clsoely monitored. Nephrotoxics were avoided. The patient had underlying history of paroxysmal atrial fibrillation and was on Pradaxa for anticoagulation as well as the amiodarone. The patient developed rukhsana hematuria. Urology consult was requested. Patient was started on Amicar due to rukhsana hematuria. The patient subsequently undergone cystoscopy with incision and dilatation of bladder neck contracture with clot evacuation and complex catheter placement on 02/03/2017. Hemoglobin and hematocrit at that time -12.1 and 38.8 respectively. The patient was started on continuous bladder irrigation. The patient was a DNR status. The patient was initially on oxygen via nasal cannula, but the next day, became hypoxemic and was placed on 50% Venturi mask. Repeated chest x-ray revealed bilateral infiltrate versus alveolar edema. Respiratory status worsened, and on 02/03/2017, he was transitioned to non-rebreather mask. The patient had on 02/03/2017 low-grade fever. ID doctor closely followed. The patient was on empiric antibiotics. Initial blood culture showed Staph coag-negative. Blood cultures were repeated. Abdominal ultrasound was ordered due to the elevated LFT. The patient was consistently tachycardic, tachypneic. Venous duplex of bilateral lower extremities was negative. Overall prognosis was guarded. Blood pressure was continued to drop down along with a heart rate. The patient was on 100% nonrebreathing mask. The patient was pronounced on 02/04/2017 at 01:47. Cause of : cardiopulmonary arrest. FINAL DIAGNOSES: 1. Sepsis. 2. Acute metabolic encephalopathy. 3. Acute hypoxemic respiratory failure 3. Acute tubular necrosis likely secondary to dehydration. 4. Dehydration. 5. Hypernatremia. 6. Diabetes ketoacidosis. 7. Prostate cancer. 8. Rukhsana hematuria. 9. Status post cystoscopy with incision and dilatation of bladder neck contracture with clot evacuation and complex catheter placement. 10. Bladder neck contracture. 11. Seizures. 12. Alzheimer dementia. 13. Paroxysmal atrial fibrillation. 14. Elevated liver function test. 15. Hypoalbuminemia. Ary Pierce M.D. I have been assigned to dictate discharge summary on this account and I was not involved in the patient's management. Erika Birch (Vanchtein) N.PItalo DR: JERONIMO JOB#: [id number] CC: BERNIE
[2017-02-06 07:02] LABS: LACTATE DEHYDROGENASE 342 U/L (135-225)
== END 2017-02-04 05:27 | disposition expired | DRG 871 ==
LOC: EDBD 08:36 → EMR 09:30 → ICU 10:36 → EDBEDREQ 10:45
DX: A41.9 Sepsis, unspecified organism (principal); N17.0 Acute kidney failure with tubular necrosis; E10.10 Type 1 diabetes mellitus with ketoacidosis without coma; E87.0 Hyperosmolality and hypernatremia; L89.159 Pressure ulcer of sacral region, unspecified stage; G93.41 Metabolic encephalopathy; N39.0 Urinary tract infection, site not specified; R56.9 Unspecified convulsions; E88.09 Other disorders of plasma-protein metabolism, not elsewhere classified; G30.9 Alzheimer's disease, unspecified; F02.80 Dementia in other diseases classified elsewhere, unspecified severity, without behavioral disturbance, psychotic disturbance, mood disturbance, and anxiety; Z85.46 Personal history of malignant neoplasm of prostate; E86.0 Dehydration; R31.9 Hematuria, unspecified; I48.0 Paroxysmal atrial fibrillation; Z79.01 Long term (current) use of anticoagulants; Z66 Do not resuscitate; N32.0 Bladder-neck obstruction
CPT/HCPCS: 36415; 36600; 70450; 71010; 80048; 80053; 80076; 80329; 81003; 82009; 82378; 82550; 82607; 82728; 82746; 82803; 82947; 82962; 82977; 83540; 83550; 83605; 83615; 83735; 83880; 84100; 84439; 84443; 84484; 84550; 85007; 85025; 85044; 85060; 85610; 85651; 85730; 86140; 87040; 87081; 87181; 93005; 93970; 94003; 94150; 94664; 94760; J2250